=== PATIENT | male | born 1955 | race Hispanic/Latino ===

== ENCOUNTER 2019-09-20 07:49 | Outpatient (CLI) | payer OTHER ==
--- NOTE | 2019-09-20 08:17 | ULT ---
EXAM: Left lower extremity venous Doppler HISTORY: Left calf pain. FINDINGS: Grayscale, color-flow, Doppler evaluation, spectral analysis of the left lower extremity venous struc tures is performed with 2-D imaging. The left common femoral, superficial femoral, popliteal, posterior tibial, proximal greater saphenous and profunda femoral veins are imaged. There is normal luminal compressibility, flow, and augmentation in the visualized deep venous structu res of the left lower extremity. IMPRESSION: No evidence of a deep vein thrombosis in the visualized deep venous structures left lower extremity.
== END 2019-09-20 07:50 | disposition home or self-care (01) ==
LOC: BICULT 07:49
PROVIDERS: ATTEND Nurse Practitioner Family
DX: M79.662 Pain in left lower leg (principal)

== ENCOUNTER 2021-02-11 18:47 | Inpatient (IN) | payer SELFPAY ==
[~2021-02-11 18:47] MED LIST: Iopamidol-370 76% 500 ML 1 ML ONE
[2021-02-11] MEDS ORDERED: Dexamethasone 10 MG/ML VIAL ONE (19:29)
[2021-02-11] MEDS ORDERED: Acetaminophen 500 MG TAB ONE (19:29)
[2021-02-11 19:33] LABS: #Lymphocytes 1.6 thou/uL (1.20-3.40); #Monocytes 0.6 thou/uL (0.11-0.59); #Neutrophils 4.7 thou/uL (1.40-6.50); %Basophils 0.4 % (0.0-1.0); %Eosinophils 0.1 % (0.0-10.0); %Lymphocytes 22.9 % (21.0-51.0); %Monocytes 8.4 % (0.0-10.0); %Neutrophils 68.3 % (42.0-75.0); Hemoglobin 16.6 g/dL (14.0-18.0); Mean Corpuscular HGB CONC 33.7 g/dL (32.0-36.0); Mean Corpuscular Hemoglobin 32.2 pg (27.0-31.0); Mean Corpuscular Volume 95.3 fL (78.0-98.0); Mean Platelet Volume 8.6 fL (7.4-10.4); Platelet Count 155 thou/uL (130-400); RBC Distribution Width 12.7 % (11.5-14.5); Red Blood Cell (RBC) Count 5.16 mill/uL (4.70-6.10); White Blood Cell (WBC) Count 6.9 thou/uL (4.8-10.8)
[2021-02-11 19:50] LABS: ALT (SGPT) 72 U/L (8-55); AST (SGOT) 95 U/L (5-34); Albumin 3.5 g/dL (3.4-4.8); Alkaline Phosphatase 97 U/L (40-110); Anion Gap 13 mmol/L (10-20); BUN (Urea Nitrogen) 15 mg/dL (8.4-25.7); Bilirubin, Total 1.4 mg/dL (0.2-1.2); Calc. Creatinine Clearance 0 mL/min (70-130); Calcium 9.1 mg/dL (7.8-10.44); Carbon Dioxide 28 mmol/L (23-31); Chloride 97 mmol/L (98-107); Globulin 4.1 g/dL (2.4-3.5); Glucose 184 mg/dL (80-115); Potassium 4.4 mmol/L (3.5-5.1); Protein, Total 7.6 g/dL (5.8-8.1); Sodium 134 mmol/L (136-145)
[2021-02-11 21:59] LABS: SARS-CoV-2 NAA Rapid Test DETECTED (NotDetected)
[2021-02-11] MEDS ORDERED: Ondansetron ODT 4 MG TAB SL PRN (23:45)
[2021-02-11] MEDS ORDERED: Ondansetron PF 4 MG/2 ML Vial IVP PRN (23:45)
[2021-02-11] MEDS ORDERED: Acetaminophen 325 MG TAB PO PRN (23:45)
[2021-02-11 23:47] LABS: Bacteria/HPF None Seen HPF (None Seen); Bilirubin Negative (Negative); Blood, Urine Negative (Negative); Clarity Clear (Clear); Glucose, Urine (Dipstick) 70 mg/dL (Negative); Ketone, Urine Trace mg/dL (Negative); Leukocyte Negative Leu/uL (Negative); Nitrite Negative (Negative); Protein, Urine (Dipstick) 70 mg/dL (Neg-Trace); RBC/HPF 0-3 HPF (0-3); Specific Gravity, Urine 1.033 (1.002-1.036); Squamous Epithelial 0-3 HPF (0-3); Urobilinogen 3 mg/dL (Less than 2); WBC/HPF 0-3 HPF (0-3); pH, Urine 5.5 (5.0-9.0)
[2021-02-12] MEDS ORDERED: Dextrose 50% Abboject 50 ML SYRINGE SLOW IVP PRN (03:52)
[2021-02-12] MEDS ORDERED: Dextrose 5% in Water 1,000 ML IV PRN (03:52)
[2021-02-12] MEDS ORDERED: hydrALAZINE 20 MG/ML VIAL SLOW IVP PRN (04:11)
[2021-02-12] MEDS: HumaLOG 300 UNITS/3 ML VIAL SC PRN ×4 (05:49→20:34)
[2021-02-12 06:34] LABS: #Lymphocytes 0.7 thou/uL (1.20-3.40); #Monocytes 0.3 thou/uL (0.11-0.59); #Neutrophils 3.3 thou/uL (1.40-6.50); %Eosinophils 0.2 % (0.0-10.0); %Lymphocytes 16.2 % (21.0-51.0); %Monocytes 6.6 % (0.0-10.0); Hemoglobin 15.6 g/dL (14.0-18.0); Mean Corpuscular HGB CONC 33.1 g/dL (32.0-36.0); Mean Corpuscular Hemoglobin 31.8 pg (27.0-31.0); Mean Corpuscular Volume 96.1 fL (78.0-98.0); Mean Platelet Volume 8.8 fL (7.4-10.4); Platelet Count 144 thou/uL (130-400); RBC Distribution Width 12.3 % (11.5-14.5); White Blood Cell (WBC) Count 4.3 thou/uL (4.8-10.8)
[2021-02-12 06:57] LABS: ALT (SGPT) 63 U/L (8-55); AST (SGOT) 73 U/L (5-34); Albumin 3.1 g/dL (3.4-4.8); Alkaline Phosphatase 84 U/L (40-110); Anion Gap 13 mmol/L (10-20); BUN (Urea Nitrogen) 21 mg/dL (8.4-25.7); Bilirubin, Direct 0.6 mg/dL (0.1-0.3); Calc. Creatinine Clearance 99 mL/min (70-130); Calcium 8.7 mg/dL (7.8-10.44); Carbon Dioxide 25 mmol/L (23-31); Chloride 99 mmol/L (98-107); Glucose 319 mg/dL (80-115); Potassium 4.7 mmol/L (3.5-5.1); Protein, Total 6.8 g/dL (5.8-8.1); Sodium 132 mmol/L (136-145)
[2021-02-12] MEDS: Dexamethasone 4 mg/ml Vial SLOW IVP SCH (07:48)
[2021-02-12] MEDS: Zinc Sulfate 220 MG CAP PO SCH (07:48)
[2021-02-12] MEDS: Cholecalciferol 1,000 UNITS (25 MCG) TAB PO SCH (07:48)
[2021-02-12] MEDS: Ascorbic Acid 500 mg Chewable Tablet PO SCH (07:48)
[2021-02-12] MEDS: Famotidine 20 MG TAB PO SCH ×2 (07:48→20:34)
[2021-02-12] MEDS: Enoxaparin Sodium 40 MG/0.4 ML SYRINGE SC SCH ×2 (07:48→20:34)
[2021-02-12] MEDS ORDERED: REMDESIVIR 200 MG in Sodium Chloride 0.9% 250 ML 210 ML IV SCH (17:00)
[2021-02-13] MEDS: HumaLOG 300 UNITS/3 ML VIAL SC PRN ×3 (06:11→20:08)
[2021-02-13 06:33] LABS: #Monocytes 0.4 thou/uL (0.11-0.59); #Neutrophils 7.3 thou/uL (1.40-6.50); %Basophils 0.2 % (0.0-1.0); %Eosinophils 0.1 % (0.0-10.0); %Lymphocytes 11.5 % (21.0-51.0); %Monocytes 4.1 % (0.0-10.0); %Neutrophils 84.1 % (42.0-75.0); Hemoglobin 15.7 g/dL (14.0-18.0); Mean Corpuscular HGB CONC 33.6 g/dL (32.0-36.0); Mean Corpuscular Hemoglobin 31.9 pg (27.0-31.0); Mean Corpuscular Volume 94.8 fL (78.0-98.0); Mean Platelet Volume 8.7 fL (7.4-10.4); Platelet Count 167 thou/uL (130-400); RBC Distribution Width 12.4 % (11.5-14.5); Red Blood Cell (RBC) Count 4.91 mill/uL (4.70-6.10); White Blood Cell (WBC) Count 8.7 thou/uL (4.8-10.8)
[2021-02-13 06:57] LABS: ALT (SGPT) 52 U/L (8-55); AST (SGOT) 56 U/L (5-34); Albumin 3.1 g/dL (3.4-4.8); Alkaline Phosphatase 83 U/L (40-110); Anion Gap 12 mmol/L (10-20); BUN (Urea Nitrogen) 20 mg/dL (8.4-25.7); Bilirubin, Direct 0.5 mg/dL (0.1-0.3); Calc. Creatinine Clearance 116 mL/min (70-130); Calcium 8.8 mg/dL (7.8-10.44); Carbon Dioxide 25 mmol/L (23-31); Chloride 103 mmol/L (98-107); Glucose 188 mg/dL (80-115); Potassium 4.2 mmol/L (3.5-5.1); Protein, Total 6.8 g/dL (5.8-8.1); Sodium 136 mmol/L (136-145)
[2021-02-13] MEDS: Dexamethasone 4 mg/ml Vial SLOW IVP SCH (07:44)
[2021-02-13] MEDS: Enoxaparin Sodium 40 MG/0.4 ML SYRINGE SC SCH ×2 (07:44→19:24)
[2021-02-13] MEDS: Famotidine 20 MG TAB PO SCH ×2 (07:44→19:24)
[2021-02-13] MEDS: Zinc Sulfate 220 MG CAP PO SCH (07:44)
[2021-02-13] MEDS: Ascorbic Acid 500 mg Chewable Tablet PO SCH (07:44)
[2021-02-13] MEDS: Cholecalciferol 1,000 UNITS (25 MCG) TAB PO SCH (07:44)
[2021-02-13] MEDS: REMDESIVIR 100 MG in Sodium Chloride 0.9% 250 ML 230 ML IV SCH (16:46)
[2021-02-14] MEDS: HumaLOG 300 UNITS/3 ML VIAL SC PRN ×4 (04:53→22:03)
[2021-02-14 06:11] LABS: #Lymphocytes 1.1 thou/uL (1.20-3.40); #Monocytes 0.4 thou/uL (0.11-0.59); #Neutrophils 6.1 thou/uL (1.40-6.50); %Basophils 0.1 % (0.0-1.0); %Eosinophils 0.2 % (0.0-10.0); %Lymphocytes 13.9 % (21.0-51.0); %Monocytes 5.3 % (0.0-10.0); %Neutrophils 80.5 % (42.0-75.0); Hemoglobin 15.4 g/dL (14.0-18.0); Mean Corpuscular HGB CONC 32.7 g/dL (32.0-36.0); Mean Corpuscular Hemoglobin 31.4 pg (27.0-31.0); Mean Platelet Volume 8.7 fL (7.4-10.4); Platelet Count 186 thou/uL (130-400); RBC Distribution Width 12.5 % (11.5-14.5); Red Blood Cell (RBC) Count 4.92 mill/uL (4.70-6.10); White Blood Cell (WBC) Count 7.5 thou/uL (4.8-10.8)
[2021-02-14 06:38] LABS: ALT (SGPT) 44 U/L (8-55); AST (SGOT) 44 U/L (5-34); Alkaline Phosphatase 85 U/L (40-110); Anion Gap 11 mmol/L (10-20); BUN (Urea Nitrogen) 21 mg/dL (8.4-25.7); Bilirubin, Direct 0.5 mg/dL (0.1-0.3); Bilirubin, Total 1.1 mg/dL (0.2-1.2); Calc. Creatinine Clearance 116 mL/min (70-130); Calcium 8.6 mg/dL (7.8-10.44); Carbon Dioxide 24 mmol/L (23-31); Chloride 103 mmol/L (98-107); Glucose 225 mg/dL (80-115); Potassium 4.3 mmol/L (3.5-5.1); Protein, Total 6.7 g/dL (5.8-8.1); Sodium 134 mmol/L (136-145)
[2021-02-14] MEDS: Dexamethasone 4 mg/ml Vial SLOW IVP SCH (08:30)
[2021-02-14] MEDS: Zinc Sulfate 220 MG CAP PO SCH (08:31)
[2021-02-14] MEDS: Famotidine 20 MG TAB PO SCH ×2 (08:31→22:03)
[2021-02-14] MEDS: Cholecalciferol 1,000 UNITS (25 MCG) TAB PO SCH (08:31)
[2021-02-14] MEDS: Ascorbic Acid 500 mg Chewable Tablet PO SCH (08:31)
[2021-02-14] MEDS: Enoxaparin Sodium 40 MG/0.4 ML SYRINGE SC SCH ×2 (08:31→22:03)
[2021-02-14] MEDS: REMDESIVIR 100 MG in Sodium Chloride 0.9% 250 ML 230 ML IV SCH (17:32)
[2021-02-15] MEDS: HumaLOG 300 UNITS/3 ML VIAL SC PRN ×4 (05:12→21:03)
[2021-02-15] MEDS: Cholecalciferol 1,000 UNITS (25 MCG) TAB PO SCH (08:10)
[2021-02-15] MEDS: Ascorbic Acid 500 mg Chewable Tablet PO SCH (08:10)
[2021-02-15] MEDS: Famotidine 20 MG TAB PO SCH ×2 (08:10→21:03)
[2021-02-15] MEDS: Zinc Sulfate 220 MG CAP PO SCH (08:10)
[2021-02-15] MEDS: Dexamethasone 4 mg/ml Vial SLOW IVP SCH (08:10)
[2021-02-15] MEDS: Enoxaparin Sodium 40 MG/0.4 ML SYRINGE SC SCH ×2 (08:10→21:03)
[2021-02-15] MEDS: REMDESIVIR 100 MG in Sodium Chloride 0.9% 250 ML 230 ML IV SCH (17:25)
[2021-02-16] MEDS: Ondansetron PF 4 MG/2 ML Vial IVP PRN (00:39)
[2021-02-16] MEDS ORDERED: Nitroglycerin 0.4 MG TAB (25 Tab Bottle) SL PRN (01:47)
[2021-02-16 02:24] LABS: #Lymphocytes 0.9 thou/uL (1.20-3.40); #Monocytes 0.4 thou/uL (0.11-0.59); #Neutrophils 9.3 thou/uL (1.40-6.50); %Eosinophils 0.4 % (0.0-10.0); %Lymphocytes 8.3 % (21.0-51.0); %Monocytes 3.7 % (0.0-10.0); %Neutrophils 87.7 % (42.0-75.0); Hemoglobin 15.7 g/dL (14.0-18.0); Mean Corpuscular HGB CONC 34.5 g/dL (32.0-36.0); Mean Corpuscular Hemoglobin 32.9 pg (27.0-31.0); Mean Corpuscular Volume 95.4 fL (78.0-98.0); Mean Platelet Volume 8.5 fL (7.4-10.4); Platelet Count 192 thou/uL (130-400); RBC Distribution Width 12.5 % (11.5-14.5); Red Blood Cell (RBC) Count 4.76 mill/uL (4.70-6.10); White Blood Cell (WBC) Count 10.6 thou/uL (4.8-10.8)
[2021-02-16 02:40] LABS: Troponin I Less than 0.010 ng/mL (< 0.028)
[2021-02-16 02:55] LABS: ALT (SGPT) 42 U/L (8-55); AST (SGOT) 36 U/L (5-34); Albumin 2.7 g/dL (3.4-4.8); Alkaline Phosphatase 89 U/L (40-110); Anion Gap 13 mmol/L (10-20); BUN (Urea Nitrogen) 21 mg/dL (8.4-25.7); CRP (Inflammatory) 1.55 mg/dL (= or < 0.5); Calc. Creatinine Clearance 120 mL/min (70-130); Calcium 8.5 mg/dL (7.8-10.44); Carbon Dioxide 22 mmol/L (23-31); Chloride 106 mmol/L (98-107); Globulin 3.8 g/dL (2.4-3.5); Glucose 179 mg/dL (80-115); Potassium 4.4 mmol/L (3.5-5.1); Protein, Total 6.5 g/dL (5.8-8.1); Sodium 137 mmol/L (136-145)
[2021-02-16] MEDS: Ascorbic Acid 500 mg Chewable Tablet PO SCH (08:01)
[2021-02-16] MEDS: Cholecalciferol 1,000 UNITS (25 MCG) TAB PO SCH (08:01)
[2021-02-16] MEDS: Famotidine 20 MG TAB PO SCH ×2 (08:02→21:07)
[2021-02-16] MEDS: Enoxaparin Sodium 40 MG/0.4 ML SYRINGE SC SCH ×2 (08:02→21:07)
[2021-02-16] MEDS: Zinc Sulfate 220 MG CAP PO SCH (08:02)
[2021-02-16] MEDS: Dexamethasone 4 mg/ml Vial SLOW IVP SCH (08:02)
[2021-02-16] MEDS: Polyvinyl Alcohol 1.4%/Povidone 0.6% Opth Drops EA EYE SCH ×2 (09:05→21:07)
[2021-02-16] MEDS: HumaLOG 300 UNITS/3 ML VIAL SC PRN ×2 (11:47→17:10)
[2021-02-16] MEDS: REMDESIVIR 100 MG in Sodium Chloride 0.9% 250 ML 230 ML IV SCH (17:03)
[2021-02-17] MEDS: Ascorbic Acid 500 mg Chewable Tablet PO SCH (07:32)
[2021-02-17] MEDS: Dexamethasone 4 mg/ml Vial SLOW IVP SCH ×2 (07:32→21:34)
[2021-02-17] MEDS: Zinc Sulfate 220 MG CAP PO SCH (07:33)
[2021-02-17] MEDS: Enoxaparin Sodium 40 MG/0.4 ML SYRINGE SC SCH ×2 (07:33→21:34)
[2021-02-17] MEDS: Famotidine 20 MG TAB PO SCH (07:33)
[2021-02-17] MEDS: Cholecalciferol 1,000 UNITS (25 MCG) TAB PO SCH (07:33)
[2021-02-17] MEDS: Polyvinyl Alcohol 1.4%/Povidone 0.6% Opth Drops EA EYE SCH ×2 (07:34→22:16)
[2021-02-17] MEDS: Ondansetron PF 4 MG/2 ML Vial IVP PRN (09:08)
[2021-02-17 10:59] LABS: Actual Bicarbonate (HCO3a) 21.1 mEq/L (22-28); Base Excess (BEa) -1.8 mEq/L (-2.0 to +3.0); CO2 Tension 31.9 mmHg (35.0-45.0); Calcium, Ionized (arterial) 1.18 mmol/L (1.12-1.30); Carboxyhemoglobin (COHb) 0.7 gm% (0.0-3.0); Hemoglobin (Hb) 17.4 g/dL (14.0-18.0); O2 Tension (PaO2), arterial 40.1 mmHg (> 80.0); Potassium - ABG Lab 4.36 mmol/L (3.70-5.30); pH, Arterial 7.44 (7.35-7.45)
[2021-02-17 11:00] LABS: Puncture Site RRA
[2021-02-17 11:01] LABS: ALV-art Gradient 568.855 mmHg (0-20)
[2021-02-17] MEDS ORDERED: Amino Acids 4.25 %/Dextrose 5% 2,000 ML IV SCH (19:15)
[2021-02-17] MEDS ORDERED: Pharmacy to Dose BARICITINIB IVPB PRN (19:51)
[2021-02-17] MEDS: ALPRAZolam 0.25 MG TAB PO PRN (21:34)
[2021-02-17] MEDS: Benzonatate 100 MG CAP PO PRN (21:34)
[2021-02-17] MEDS: Colchicine 0.6 MG TAB PO SCH (21:34)
[2021-02-17] MEDS: HumaLOG 300 UNITS/3 ML VIAL SC PRN (21:39)
[2021-02-18 03:36] LABS: #Basophils 0.1 thou/uL (0.0-0.2); #Lymphocytes 0.5 thou/uL (1.20-3.40); #Monocytes 0.2 thou/uL (0.11-0.59); #Neutrophils 10.3 thou/uL (1.40-6.50); %Basophils 0.5 % (0.0-1.0); %Eosinophils 0.1 % (0.0-10.0); %Lymphocytes 4.4 % (21.0-51.0); %Monocytes 2.1 % (0.0-10.0); Hemoglobin 16.4 g/dL (14.0-18.0); Mean Corpuscular HGB CONC 34.1 g/dL (32.0-36.0); Mean Corpuscular Hemoglobin 32.7 pg (27.0-31.0); Mean Corpuscular Volume 95.8 fL (78.0-98.0); Mean Platelet Volume 8.7 fL (7.4-10.4); Platelet Count 209 thou/uL (130-400); RBC Distribution Width 13.2 % (11.5-14.5); Red Blood Cell (RBC) Count 5.03 mill/uL (4.70-6.10)
[2021-02-18 03:58] LABS: ALT (SGPT) 37 U/L (8-55); AST (SGOT) 32 U/L (5-34); Albumin 2.7 g/dL (3.4-4.8); Alkaline Phosphatase 105 U/L (40-110); Anion Gap 12 mmol/L (10-20); BUN (Urea Nitrogen) 23 mg/dL (8.4-25.7); Bilirubin, Total 1.3 mg/dL (0.2-1.2); CRP (Inflammatory) 5.41 mg/dL (= or < 0.5); Calc. Creatinine Clearance 112 mL/min (70-130); Calcium 8.5 mg/dL (7.8-10.44); Carbon Dioxide 23 mmol/L (23-31); Chloride 104 mmol/L (98-107); Globulin 3.8 g/dL (2.4-3.5); Glucose 327 mg/dL (80-115); Potassium 4.9 mmol/L (3.5-5.1); Protein, Total 6.5 g/dL (5.8-8.1); Sodium 134 mmol/L (136-145)
[2021-02-18] MEDS: HumaLOG 300 UNITS/3 ML VIAL SC PRN ×4 (05:33→20:49)
[2021-02-18] MEDS ORDERED: Amino Acids 4.25 %/Dextrose 5% 2,000 ML BAG IV SCH (09:00)
[2021-02-18] MEDS: Enoxaparin Sodium 40 MG/0.4 ML SYRINGE SC SCH ×2 (09:05→20:46)
[2021-02-18] MEDS: Zinc Sulfate 220 MG CAP PO SCH (09:05)
[2021-02-18] MEDS: Colchicine 0.6 MG TAB PO SCH ×2 (09:05→20:47)
[2021-02-18] MEDS: Ascorbic Acid 500 mg Chewable Tablet PO SCH (09:05)
[2021-02-18] MEDS: Polyvinyl Alcohol 1.4%/Povidone 0.6% Opth Drops EA EYE SCH ×2 (09:05→20:47)
[2021-02-18] MEDS: Dexamethasone 4 mg/ml Vial SLOW IVP SCH ×2 (09:05→20:47)
[2021-02-18] MEDS: Cholecalciferol 1,000 UNITS (25 MCG) TAB PO SCH (09:05)
[2021-02-18] MEDS: BARICITINIB 2 MG TAB PO SCH (09:44)
[2021-02-18] MEDS ORDERED: Lantus 1000 UNITS/10 ML VIAL SC SCH (11:15)
[2021-02-18] MEDS: ALPRAZolam 0.25 MG TAB PO PRN (20:47)
[2021-02-18] MEDS: Benzonatate 100 MG CAP PO PRN (20:47)
[2021-02-18] MEDS: Mirtazapine 15 MG TAB PO SCH (20:47)
[2021-02-18] MEDS: Lantus 1000 UNITS/10 ML VIAL SC SCH (20:49)
[2021-02-19 03:16] LABS: #Lymphocytes 0.6 thou/uL (1.20-3.40); #Monocytes 0.3 thou/uL (0.11-0.59); #Neutrophils 11.3 thou/uL (1.40-6.50); %Basophils 0.1 % (0.0-1.0); %Eosinophils 0.4 % (0.0-10.0); %Lymphocytes 5.2 % (21.0-51.0); %Monocytes 2.3 % (0.0-10.0); Hemoglobin 15.5 g/dL (14.0-18.0); Mean Corpuscular HGB CONC 33.7 g/dL (32.0-36.0); Mean Corpuscular Hemoglobin 32.2 pg (27.0-31.0); Mean Corpuscular Volume 95.4 fL (78.0-98.0); Mean Platelet Volume 8.8 fL (7.4-10.4); Platelet Count 210 thou/uL (130-400); RBC Distribution Width 12.9 % (11.5-14.5); Red Blood Cell (RBC) Count 4.83 mill/uL (4.70-6.10); White Blood Cell (WBC) Count 12.3 thou/uL (4.8-10.8)
[2021-02-19 03:33] LABS: Lactic Acid 2.1 mmol/L (0.5-2.2)
[2021-02-19 03:36] LABS: ALT (SGPT) 33 U/L (8-55); AST (SGOT) 30 U/L (5-34); Albumin 2.4 g/dL (3.4-4.8); Alkaline Phosphatase 98 U/L (40-110); Anion Gap 12 mmol/L (10-20); BUN (Urea Nitrogen) 25 mg/dL (8.4-25.7); CRP (Inflammatory) 2.52 mg/dL (= or < 0.5); Calc. Creatinine Clearance 109 mL/min (70-130); Calcium 8.3 mg/dL (7.8-10.44); Carbon Dioxide 21 mmol/L (23-31); Chloride 103 mmol/L (98-107); Globulin 3.6 g/dL (2.4-3.5); Glucose 302 mg/dL (80-115); Potassium 4.8 mmol/L (3.5-5.1); Sodium 131 mmol/L (136-145)
[2021-02-19] MEDS: HumaLOG 300 UNITS/3 ML VIAL SC PRN ×4 (05:57→20:07)
[2021-02-19] MEDS: Ascorbic Acid 500 mg Chewable Tablet PO SCH (08:05)
[2021-02-19] MEDS: Polyvinyl Alcohol 1.4%/Povidone 0.6% Opth Drops EA EYE SCH ×2 (08:05→20:06)
[2021-02-19] MEDS: Cholecalciferol 1,000 UNITS (25 MCG) TAB PO SCH (08:05)
[2021-02-19] MEDS: Colchicine 0.6 MG TAB PO SCH ×2 (08:05→20:06)
[2021-02-19] MEDS: Zinc Sulfate 220 MG CAP PO SCH (08:05)
[2021-02-19] MEDS: BARICITINIB 2 MG TAB PO SCH (08:06)
[2021-02-19] MEDS: Dexamethasone 4 mg/ml Vial SLOW IVP SCH ×2 (08:06→20:06)
[2021-02-19] MEDS: Enoxaparin Sodium 40 MG/0.4 ML SYRINGE SC SCH ×2 (08:06→20:06)
[2021-02-19] MEDS: Mirtazapine 15 MG TAB PO SCH (20:06)
[2021-02-19] MEDS: Lantus 1000 UNITS/10 ML VIAL SC SCH (20:07)
[2021-02-20 03:31] LABS: #Lymphocytes 0.4 thou/uL (1.20-3.40); #Monocytes 0.3 thou/uL (0.11-0.59); #Neutrophils 11.4 thou/uL (1.40-6.50); %Basophils 0.2 % (0.0-1.0); %Eosinophils 0.2 % (0.0-10.0); %Lymphocytes 2.9 % (21.0-51.0); %Monocytes 2.8 % (0.0-10.0); %Neutrophils 93.9 % (42.0-75.0); Hemoglobin 16.2 g/dL (14.0-18.0); Mean Corpuscular HGB CONC 34.4 g/dL (32.0-36.0); Mean Corpuscular Hemoglobin 32.9 pg (27.0-31.0); Mean Corpuscular Volume 95.6 fL (78.0-98.0); Mean Platelet Volume 8.9 fL (7.4-10.4); Platelet Count 188 thou/uL (130-400); RBC Distribution Width 13.1 % (11.5-14.5); Red Blood Cell (RBC) Count 4.91 mill/uL (4.70-6.10); White Blood Cell (WBC) Count 12.2 thou/uL (4.8-10.8)
[2021-02-20 03:56] LABS: ALT (SGPT) 38 U/L (8-55); AST (SGOT) 41 U/L (5-34); Albumin 2.4 g/dL (3.4-4.8); Alkaline Phosphatase 104 U/L (40-110); Anion Gap 13 mmol/L (10-20); BUN (Urea Nitrogen) 23 mg/dL (8.4-25.7); Bilirubin, Total 1.1 mg/dL (0.2-1.2); CRP (Inflammatory) 1.01 mg/dL (= or < 0.5); Calc. Creatinine Clearance 110 mL/min (70-130); Calcium 8.5 mg/dL (7.8-10.44); Carbon Dioxide 21 mmol/L (23-31); Chloride 105 mmol/L (98-107); Globulin 3.7 g/dL (2.4-3.5); Glucose 167 mg/dL (80-115); Potassium 4.9 mmol/L (3.5-5.1); Protein, Total 6.1 g/dL (5.8-8.1); Sodium 134 mmol/L (136-145)
[2021-02-20] MEDS: Polyvinyl Alcohol 1.4%/Povidone 0.6% Opth Drops EA EYE SCH ×2 (09:16→20:06)
[2021-02-20] MEDS: Enoxaparin Sodium 40 MG/0.4 ML SYRINGE SC SCH ×2 (09:16→20:06)
[2021-02-20] MEDS: Colchicine 0.6 MG TAB PO SCH ×2 (09:17→20:06)
[2021-02-20] MEDS: Dexamethasone 4 mg/ml Vial SLOW IVP SCH ×2 (09:17→20:06)
[2021-02-20] MEDS: BARICITINIB 2 MG TAB PO SCH (09:17)
[2021-02-20] MEDS: Ascorbic Acid 500 mg Chewable Tablet PO SCH (09:17)
[2021-02-20] MEDS: Cholecalciferol 1,000 UNITS (25 MCG) TAB PO SCH (09:17)
[2021-02-20] MEDS: Zinc Sulfate 220 MG CAP PO SCH (09:17)
[2021-02-20] MEDS ORDERED: Polyethylene Glycol 3350 17 GM Packet PO SCH (12:00)
[2021-02-20] MEDS: HumaLOG 300 UNITS/3 ML VIAL SC PRN ×2 (15:53→20:07)
[2021-02-20] MEDS: Senokot S 8.6-50 MG TAB PO SCH (20:06)
[2021-02-20] MEDS: Lantus 1000 UNITS/10 ML VIAL SC SCH (20:06)
[2021-02-20] MEDS: Mirtazapine 15 MG TAB PO SCH (20:06)
[2021-02-21 03:52] LABS: #Lymphocytes 0.5 thou/uL (1.20-3.40); #Monocytes 0.3 thou/uL (0.11-0.59); #Neutrophils 10.2 thou/uL (1.40-6.50); %Basophils 0.2 % (0.0-1.0); %Eosinophils 0.1 % (0.0-10.0); %Lymphocytes 4.5 % (21.0-51.0); %Monocytes 2.7 % (0.0-10.0); %Neutrophils 92.6 % (42.0-75.0); Hemoglobin 16.2 g/dL (14.0-18.0); Mean Corpuscular HGB CONC 34.5 g/dL (32.0-36.0); Mean Corpuscular Volume 95.6 fL (78.0-98.0); Platelet Count 157 thou/uL (130-400); RBC Distribution Width 13.2 % (11.5-14.5); White Blood Cell (WBC) Count 11.1 thou/uL (4.8-10.8)
[2021-02-21 04:07] LABS: ALT (SGPT) 46 U/L (8-55); AST (SGOT) 43 U/L (5-34); Albumin 2.5 g/dL (3.4-4.8); Alkaline Phosphatase 106 U/L (40-110); Anion Gap 9 mmol/L (10-20); BUN (Urea Nitrogen) 22 mg/dL (8.4-25.7); Bilirubin, Total 1.4 mg/dL (0.2-1.2); CRP (Inflammatory) 0.59 mg/dL (= or < 0.5); Calc. Creatinine Clearance 118 mL/min (70-130); Calcium 8.3 mg/dL (7.8-10.44); Carbon Dioxide 27 mmol/L (23-31); Chloride 103 mmol/L (98-107); Globulin 3.5 g/dL (2.4-3.5); Glucose 164 mg/dL (80-115); Potassium 4.5 mmol/L (3.5-5.1); Sodium 134 mmol/L (136-145)
[2021-02-21] MEDS: Colchicine 0.6 MG TAB PO SCH ×2 (09:24→20:13)
[2021-02-21] MEDS: Senokot S 8.6-50 MG TAB PO SCH ×2 (09:24→20:13)
[2021-02-21] MEDS: Cholecalciferol 1,000 UNITS (25 MCG) TAB PO SCH (09:24)
[2021-02-21] MEDS: BARICITINIB 2 MG TAB PO SCH (09:24)
[2021-02-21] MEDS: Polyvinyl Alcohol 1.4%/Povidone 0.6% Opth Drops EA EYE SCH ×2 (09:24→20:14)
[2021-02-21] MEDS: Dexamethasone 4 mg/ml Vial SLOW IVP SCH ×2 (09:24→20:13)
[2021-02-21] MEDS: Zinc Sulfate 220 MG CAP PO SCH (09:24)
[2021-02-21] MEDS: Enoxaparin Sodium 40 MG/0.4 ML SYRINGE SC SCH ×2 (09:24→20:15)
[2021-02-21] MEDS: Ascorbic Acid 500 mg Chewable Tablet PO SCH (09:24)
[2021-02-21] MEDS: Lantus 1000 UNITS/10 ML VIAL SC SCH (20:14)
[2021-02-21] MEDS: Mirtazapine 15 MG TAB PO SCH (20:14)
[2021-02-21] MEDS: HumaLOG 300 UNITS/3 ML VIAL SC PRN (20:15)
[2021-02-22] MEDS: HumaLOG 300 UNITS/3 ML VIAL SC PRN (05:26)
[2021-02-22] MEDS: Enoxaparin Sodium 40 MG/0.4 ML SYRINGE SC SCH ×2 (09:17→21:49)
[2021-02-22] MEDS: Senokot S 8.6-50 MG TAB PO SCH ×2 (09:17→21:49)
[2021-02-22] MEDS: Dexamethasone 4 mg/ml Vial SLOW IVP SCH ×2 (09:17→21:48)
[2021-02-22] MEDS: Colchicine 0.6 MG TAB PO SCH ×2 (09:17→21:48)
[2021-02-22] MEDS: BARICITINIB 2 MG TAB PO SCH (09:17)
[2021-02-22] MEDS: Cholecalciferol 1,000 UNITS (25 MCG) TAB PO SCH (09:17)
[2021-02-22] MEDS: Ascorbic Acid 500 mg Chewable Tablet PO SCH (09:17)
[2021-02-22] MEDS: Polyvinyl Alcohol 1.4%/Povidone 0.6% Opth Drops EA EYE SCH ×2 (09:18→21:48)
[2021-02-22] MEDS: Zinc Sulfate 220 MG CAP PO SCH (09:18)
[2021-02-22] MEDS: Mirtazapine 15 MG TAB PO SCH (21:48)
[2021-02-22] MEDS: ALPRAZolam 0.25 MG TAB PO PRN (21:48)
[2021-02-22] MEDS: Lantus 1000 UNITS/10 ML VIAL SC SCH (21:52)
[2021-02-23] MEDS: HumaLOG 300 UNITS/3 ML VIAL SC PRN ×3 (06:48→16:56)
[2021-02-23] MEDS: BARICITINIB 2 MG TAB PO SCH (08:02)
[2021-02-23] MEDS: Enoxaparin Sodium 40 MG/0.4 ML SYRINGE SC SCH ×2 (08:02→21:03)
[2021-02-23] MEDS: Polyvinyl Alcohol 1.4%/Povidone 0.6% Opth Drops EA EYE SCH ×2 (08:08→21:03)
[2021-02-23] MEDS: Ascorbic Acid 500 mg Chewable Tablet PO SCH (08:08)
[2021-02-23] MEDS: Dexamethasone 4 mg/ml Vial SLOW IVP SCH ×2 (08:09→21:03)
[2021-02-23] MEDS: Senokot S 8.6-50 MG TAB PO SCH ×2 (08:09→21:02)
[2021-02-23] MEDS: Zinc Sulfate 220 MG CAP PO SCH (08:09)
[2021-02-23] MEDS: Colchicine 0.6 MG TAB PO SCH ×2 (08:09→21:02)
[2021-02-23] MEDS: Cholecalciferol 1,000 UNITS (25 MCG) TAB PO SCH (08:09)
[2021-02-23] MEDS: Mirtazapine 15 MG TAB PO SCH (21:02)
[2021-02-23] MEDS: Lantus 1000 UNITS/10 ML VIAL SC SCH (21:04)
[2021-02-24 04:04] LABS: #Lymphocytes 0.7 thou/uL (1.20-3.40); #Monocytes 0.3 thou/uL (0.11-0.59); #Neutrophils 14.6 thou/uL (1.40-6.50); %Eosinophils 0.2 % (0.0-10.0); %Lymphocytes 4.4 % (21.0-51.0); %Monocytes 2.2 % (0.0-10.0); %Neutrophils 93.3 % (42.0-75.0); Hemoglobin 17.1 g/dL (14.0-18.0); Mean Corpuscular HGB CONC 32.7 g/dL (32.0-36.0); Mean Corpuscular Hemoglobin 31.5 pg (27.0-31.0); Mean Corpuscular Volume 96.4 fL (78.0-98.0); Mean Platelet Volume 9.8 fL (7.4-10.4); Platelet Count 137 thou/uL (130-400); RBC Distribution Width 13.3 % (11.5-14.5); Red Blood Cell (RBC) Count 5.41 mill/uL (4.70-6.10); White Blood Cell (WBC) Count 15.7 thou/uL (4.8-10.8)
[2021-02-24 04:31] LABS: ALT (SGPT) 73 U/L (8-55); AST (SGOT) 46 U/L (5-34); Albumin 2.5 g/dL (3.4-4.8); Alkaline Phosphatase 117 U/L (40-110); Anion Gap 12 mmol/L (10-20); BUN (Urea Nitrogen) 24 mg/dL (8.4-25.7); Bilirubin, Direct 0.7 mg/dL (0.1-0.3); Bilirubin, Total 1.6 mg/dL (0.2-1.2); Calc. Creatinine Clearance 113 mL/min (70-130); Calcium 8.6 mg/dL (7.8-10.44); Carbon Dioxide 26 mmol/L (23-31); Chloride 104 mmol/L (98-107); Glucose 164 mg/dL (80-115); Potassium 4.5 mmol/L (3.5-5.1); Sodium 137 mmol/L (136-145)
[2021-02-24] MEDS: Benzonatate 100 MG CAP PO PRN (06:05)
[2021-02-24] MEDS: HumaLOG 300 UNITS/3 ML VIAL SC PRN ×3 (06:05→20:51)
[2021-02-24] MEDS: Cholecalciferol 1,000 UNITS (25 MCG) TAB PO SCH (10:10)
[2021-02-24] MEDS: Ascorbic Acid 500 mg Chewable Tablet PO SCH (10:10)
[2021-02-24] MEDS: Zinc Sulfate 220 MG CAP PO SCH (10:11)
[2021-02-24] MEDS: Enoxaparin Sodium 40 MG/0.4 ML SYRINGE SC SCH ×2 (10:11→20:36)
[2021-02-24] MEDS: Dexamethasone 4 mg/ml Vial SLOW IVP SCH ×2 (10:11→20:37)
[2021-02-24] MEDS: BARICITINIB 2 MG TAB PO SCH (10:11)
[2021-02-24] MEDS: Colchicine 0.6 MG TAB PO SCH ×2 (10:11→20:36)
[2021-02-24] MEDS: Senokot S 8.6-50 MG TAB PO SCH ×2 (10:11→20:36)
[2021-02-24] MEDS: Polyvinyl Alcohol 1.4%/Povidone 0.6% Opth Drops EA EYE SCH ×2 (10:12→20:37)
[2021-02-24] MEDS: Mirtazapine 15 MG TAB PO SCH (20:37)
[2021-02-24] MEDS: Lantus 1000 UNITS/10 ML VIAL SC SCH (20:49)
[2021-02-25] MEDS: HumaLOG 300 UNITS/3 ML VIAL SC PRN ×2 (06:03→17:20)
[2021-02-25] MEDS: Dexamethasone 4 mg/ml Vial SLOW IVP SCH ×2 (09:44→21:30)
[2021-02-25] MEDS: Senokot S 8.6-50 MG TAB PO SCH ×2 (09:44→21:30)
[2021-02-25] MEDS: Cholecalciferol 1,000 UNITS (25 MCG) TAB PO SCH (09:44)
[2021-02-25] MEDS: Zinc Sulfate 220 MG CAP PO SCH (09:44)
[2021-02-25] MEDS: BARICITINIB 2 MG TAB PO SCH (09:44)
[2021-02-25] MEDS: Ascorbic Acid 500 mg Chewable Tablet PO SCH (09:44)
[2021-02-25] MEDS: Enoxaparin Sodium 40 MG/0.4 ML SYRINGE SC SCH ×2 (09:44→21:30)
[2021-02-25] MEDS: Polyvinyl Alcohol 1.4%/Povidone 0.6% Opth Drops EA EYE SCH ×2 (09:44→21:31)
[2021-02-25] MEDS: Colchicine 0.6 MG TAB PO SCH ×2 (09:44→21:30)
[2021-02-25] MEDS ORDERED: Albuterol Sulfate 2.5 mg/3 ml Neb EZPAP PRN (11:52)
[2021-02-25] MEDS: Acetaminophen 325 MG TAB PO PRN (11:54)
[2021-02-25] MEDS: Mirtazapine 15 MG TAB PO SCH (21:30)
[2021-02-25] MEDS: Metoprolol Tartrate 25 MG TAB PO SCH (21:30)
[2021-02-25] MEDS: Lantus 1000 UNITS/10 ML VIAL SC SCH (21:31)
[2021-02-26] MEDS: Benzonatate 100 MG CAP PO PRN ×3 (05:12→21:18)
[2021-02-26] MEDS: Senokot S 8.6-50 MG TAB PO SCH ×2 (09:33→21:17)
[2021-02-26] MEDS: Ascorbic Acid 500 mg Chewable Tablet PO SCH (09:34)
[2021-02-26] MEDS: Colchicine 0.6 MG TAB PO SCH ×2 (09:34→21:16)
[2021-02-26] MEDS: Metoprolol Tartrate 25 MG TAB PO SCH ×3 (09:34→22:03)
[2021-02-26] MEDS: Zinc Sulfate 220 MG CAP PO SCH (09:35)
[2021-02-26] MEDS: Cholecalciferol 1,000 UNITS (25 MCG) TAB PO SCH (09:35)
[2021-02-26] MEDS: Dexamethasone 4 mg/ml Vial SLOW IVP SCH ×2 (09:35→21:16)
[2021-02-26] MEDS: Enoxaparin Sodium 40 MG/0.4 ML SYRINGE SC SCH ×2 (09:36→21:16)
[2021-02-26] MEDS: Polyvinyl Alcohol 1.4%/Povidone 0.6% Opth Drops EA EYE SCH ×2 (09:37→21:16)
[2021-02-26] MEDS: BARICITINIB 2 MG TAB PO SCH (09:41)
[2021-02-26] MEDS: Acetaminophen 325 MG TAB PO PRN (10:19)
[2021-02-26] MEDS: HumaLOG 300 UNITS/3 ML VIAL SC PRN (16:43)
[2021-02-26] MEDS: Lantus 1000 UNITS/10 ML VIAL SC SCH (21:14)
[2021-02-26] MEDS: Mirtazapine 15 MG TAB PO SCH (21:16)
[2021-02-27 04:13] LABS: #Lymphocytes 0.7 thou/uL (1.20-3.40); #Monocytes 0.5 thou/uL (0.11-0.59); #Neutrophils 14.7 thou/uL (1.40-6.50); %Eosinophils 0.1 % (0.0-10.0); %Lymphocytes 4.1 % (21.0-51.0); %Monocytes 3.2 % (0.0-10.0); %Neutrophils 92.6 % (42.0-75.0); Hemoglobin 17.2 g/dL (14.0-18.0); Mean Corpuscular Hemoglobin 32.2 pg (27.0-31.0); Mean Corpuscular Volume 97.5 fL (78.0-98.0); Mean Platelet Volume 9.8 fL (7.4-10.4); Platelet Count 142 thou/uL (130-400); RBC Distribution Width 13.3 % (11.5-14.5); Red Blood Cell (RBC) Count 5.36 mill/uL (4.70-6.10); White Blood Cell (WBC) Count 15.8 thou/uL (4.8-10.8)
[2021-02-27 04:36] LABS: ALT (SGPT) 71 U/L (8-55); AST (SGOT) 48 U/L (5-34); Albumin 2.7 g/dL (3.4-4.8); Alkaline Phosphatase 147 U/L (40-110); Anion Gap 14 mmol/L (10-20); BUN (Urea Nitrogen) 27 mg/dL (8.4-25.7); Bilirubin, Direct 0.7 mg/dL (0.1-0.3); Bilirubin, Total 1.6 mg/dL (0.2-1.2); Calc. Creatinine Clearance 108 mL/min (70-130); Calcium 8.5 mg/dL (7.8-10.44); Carbon Dioxide 21 mmol/L (23-31); Chloride 105 mmol/L (98-107); Glucose 165 mg/dL (80-115); Potassium 4.4 mmol/L (3.5-5.1); Protein, Total 6.2 g/dL (5.8-8.1); Sodium 136 mmol/L (136-145)
[2021-02-27] MEDS: HumaLOG 300 UNITS/3 ML VIAL SC PRN ×2 (05:14→17:35)
[2021-02-27] MEDS: Ascorbic Acid 500 mg Chewable Tablet PO SCH (09:16)
[2021-02-27] MEDS: Metoprolol Tartrate 25 MG TAB PO SCH ×2 (09:17→20:54)
[2021-02-27] MEDS: Zinc Sulfate 220 MG CAP PO SCH (09:17)
[2021-02-27] MEDS: Cholecalciferol 1,000 UNITS (25 MCG) TAB PO SCH (09:17)
[2021-02-27] MEDS: BARICITINIB 2 MG TAB PO SCH (09:17)
[2021-02-27] MEDS: Benzonatate 100 MG CAP PO PRN ×2 (09:17→20:47)
[2021-02-27] MEDS: Dexamethasone 4 mg/ml Vial SLOW IVP SCH ×2 (09:26→20:48)
[2021-02-27] MEDS: Enoxaparin Sodium 40 MG/0.4 ML SYRINGE SC SCH ×2 (09:26→20:47)
[2021-02-27] MEDS: Polyvinyl Alcohol 1.4%/Povidone 0.6% Opth Drops EA EYE SCH ×2 (09:27→20:47)
[2021-02-27] MEDS: Senokot S 8.6-50 MG TAB PO SCH ×2 (09:29→20:54)
[2021-02-27] MEDS: Colchicine 0.6 MG TAB PO SCH ×2 (09:29→20:47)
[2021-02-27] MEDS: Lantus 1000 UNITS/10 ML VIAL SC SCH (20:46)
[2021-02-27] MEDS: Mirtazapine 15 MG TAB PO SCH (20:47)
[2021-02-27] MEDS: Loperamide HCl 2 MG CAP PO PRN (20:47)
[2021-02-28] MEDS: HumaLOG 300 UNITS/3 ML VIAL SC PRN ×2 (05:55→16:58)
[2021-02-28] MEDS: Colchicine 0.6 MG TAB PO SCH ×2 (08:56→20:32)
[2021-02-28] MEDS: Senokot S 8.6-50 MG TAB PO SCH ×2 (08:56→20:36)
[2021-02-28] MEDS: Ascorbic Acid 500 mg Chewable Tablet PO SCH (08:56)
[2021-02-28] MEDS: Metoprolol Tartrate 25 MG TAB PO SCH ×2 (08:56→20:42)
[2021-02-28] MEDS: Cholecalciferol 1,000 UNITS (25 MCG) TAB PO SCH (08:57)
[2021-02-28] MEDS: Polyvinyl Alcohol 1.4%/Povidone 0.6% Opth Drops EA EYE SCH ×2 (08:57→20:33)
[2021-02-28] MEDS: Enoxaparin Sodium 40 MG/0.4 ML SYRINGE SC SCH ×2 (08:57→20:33)
[2021-02-28] MEDS: Dexamethasone 4 mg/ml Vial SLOW IVP SCH ×2 (08:57→20:31)
[2021-02-28] MEDS: Zinc Sulfate 220 MG CAP PO SCH (08:57)
[2021-02-28] MEDS: BARICITINIB 2 MG TAB PO SCH (08:59)
[2021-02-28] MEDS: Benzonatate 100 MG CAP PO PRN (20:32)
[2021-02-28] MEDS: Mirtazapine 15 MG TAB PO SCH (20:32)
[2021-02-28] MEDS: Lantus 1000 UNITS/10 ML VIAL SC SCH (20:34)
[2021-03-01] MEDS: BARICITINIB 2 MG TAB PO SCH (08:50)
[2021-03-01] MEDS: Dexamethasone 4 mg/ml Vial SLOW IVP SCH ×2 (08:50→22:28)
[2021-03-01] MEDS: Ascorbic Acid 500 mg Chewable Tablet PO SCH (08:51)
[2021-03-01] MEDS: Colchicine 0.6 MG TAB PO SCH ×2 (08:51→22:28)
[2021-03-01] MEDS: Zinc Sulfate 220 MG CAP PO SCH (08:51)
[2021-03-01] MEDS: Cholecalciferol 1,000 UNITS (25 MCG) TAB PO SCH (08:52)
[2021-03-01] MEDS: Metoprolol Tartrate 25 MG TAB PO SCH ×2 (08:52→22:28)
[2021-03-01] MEDS: Polyvinyl Alcohol 1.4%/Povidone 0.6% Opth Drops EA EYE SCH ×2 (08:52→22:31)
[2021-03-01] MEDS: Enoxaparin Sodium 40 MG/0.4 ML SYRINGE SC SCH ×2 (08:52→22:29)
[2021-03-01] MEDS: Senokot S 8.6-50 MG TAB PO SCH ×2 (08:53→22:30)
[2021-03-01] MEDS: Loperamide HCl 2 MG CAP PO PRN (13:33)
[2021-03-01] MEDS: Mirtazapine 15 MG TAB PO SCH (22:28)
[2021-03-01] MEDS: Lantus 1000 UNITS/10 ML VIAL SC SCH (22:29)
[2021-03-01] MEDS: HumaLOG 300 UNITS/3 ML VIAL SC PRN (23:37)
[2021-03-02 04:33] LABS: ALT (SGPT) 70 U/L (8-55); AST (SGOT) 37 U/L (5-34); Albumin 2.5 g/dL (3.4-4.8); Alkaline Phosphatase 134 U/L (40-110); Anion Gap 9 mmol/L (10-20); BUN (Urea Nitrogen) 26 mg/dL (8.4-25.7); Bilirubin, Direct 0.5 mg/dL (0.1-0.3); Bilirubin, Total 1.1 mg/dL (0.2-1.2); Calc. Creatinine Clearance 126 mL/min (70-130); Calcium 8.1 mg/dL (7.8-10.44); Carbon Dioxide 25 mmol/L (23-31); Chloride 105 mmol/L (98-107); Glucose 113 mg/dL (80-115); Magnesium 2.2 mg/dL (1.6-2.6); Potassium 4.1 mmol/L (3.5-5.1); Protein, Total 5.6 g/dL (5.8-8.1); Sodium 135 mmol/L (136-145)
[2021-03-02 04:34] LABS: Phosphorus 2.6 mg/dL (2.3-4.7)
[2021-03-02 05:29] LABS: #Eosinphils 0.1 thou/uL (0.0-0.7); #Lymphocytes 0.6 thou/uL (1.20-3.40); #Monocytes 0.4 thou/uL (0.11-0.59); #Neutrophils 12.2 thou/uL (1.40-6.50); %Basophils 0.1 % (0.0-1.0); %Eosinophils 0.5 % (0.0-10.0); %Lymphocytes 4.3 % (21.0-51.0); %Neutrophils 92.1 % (42.0-75.0); Hemoglobin 16.4 g/dL (14.0-18.0); Mean Corpuscular HGB CONC 33.4 g/dL (32.0-36.0); Mean Corpuscular Hemoglobin 32.8 pg (27.0-31.0); Mean Platelet Volume 10.9 fL (7.4-10.4); Platelet Count 110 thou/uL (130-400); Platelet Morphology Comment Appears Decreased; RBC Distribution Width 13.4 % (11.5-14.5); White Blood Cell (WBC) Count 13.3 thou/uL (4.8-10.8)
[2021-03-02] MEDS: BARICITINIB 2 MG TAB PO SCH (09:52)
[2021-03-02] MEDS: Enoxaparin Sodium 40 MG/0.4 ML SYRINGE SC SCH ×2 (09:52→20:43)
[2021-03-02] MEDS: Zinc Sulfate 220 MG CAP PO SCH (09:57)
[2021-03-02] MEDS: Cholecalciferol 1,000 UNITS (25 MCG) TAB PO SCH (09:57)
[2021-03-02] MEDS: Folic Acid 1 MG TAB PO SCH (09:57)
[2021-03-02] MEDS: Ascorbic Acid 500 mg Chewable Tablet PO SCH (09:57)
[2021-03-02] MEDS: Multivit, Therapeutic 1 TAB PO SCH (09:57)
[2021-03-02] MEDS: Metoprolol Tartrate 25 MG TAB PO SCH ×2 (09:57→21:07)
[2021-03-02] MEDS: Cyanocobalamin (Vitamin B-12) 1,000 MCG TAB PO SCH (09:57)
[2021-03-02] MEDS: Colchicine 0.6 MG TAB PO SCH ×2 (09:57→20:44)
[2021-03-02] MEDS: Dexamethasone 4 mg/ml Vial SLOW IVP SCH ×2 (09:58→20:44)
[2021-03-02] MEDS: Senokot S 8.6-50 MG TAB PO SCH ×2 (09:59→20:24)
[2021-03-02] MEDS: Polyvinyl Alcohol 1.4%/Povidone 0.6% Opth Drops EA EYE SCH ×2 (09:59→20:43)
[2021-03-02] MEDS: Loperamide HCl 2 MG CAP PO PRN (13:13)
[2021-03-02] MEDS: Mirtazapine 15 MG TAB PO SCH (20:43)
[2021-03-02] MEDS: Lantus 1000 UNITS/10 ML VIAL SC SCH (20:44)
[2021-03-02] MEDS: Benzonatate 100 MG CAP PO PRN (20:44)
[2021-03-02] MEDS: HumaLOG 300 UNITS/3 ML VIAL SC PRN (21:23)
[2021-03-03 04:11] LABS: #Lymphocytes 0.7 thou/uL (1.20-3.40); #Monocytes 0.3 thou/uL (0.11-0.59); #Neutrophils 9.9 thou/uL (1.40-6.50); %Eosinophils 0.4 % (0.0-10.0); %Monocytes 2.3 % (0.0-10.0); %Neutrophils 91.2 % (42.0-75.0); Hemoglobin 15.6 g/dL (14.0-18.0); Mean Corpuscular HGB CONC 32.8 g/dL (32.0-36.0); Mean Corpuscular Volume 97.7 fL (78.0-98.0); Mean Platelet Volume 10.2 fL (7.4-10.4); Platelet Count 115 thou/uL (130-400); RBC Distribution Width 13.4 % (11.5-14.5); Red Blood Cell (RBC) Count 4.88 mill/uL (4.70-6.10); White Blood Cell (WBC) Count 10.9 thou/uL (4.8-10.8)
[2021-03-03 04:28] LABS: Anion Gap 10 mmol/L (10-20); BUN (Urea Nitrogen) 23 mg/dL (8.4-25.7); Calc. Creatinine Clearance 120 mL/min (70-130); Calcium 8.1 mg/dL (7.8-10.44); Carbon Dioxide 25 mmol/L (23-31); Chloride 105 mmol/L (98-107); Glucose 166 mg/dL (80-115); Potassium 4.3 mmol/L (3.5-5.1); Sodium 136 mmol/L (136-145)
[2021-03-03] MEDS: Folic Acid 1 MG TAB PO SCH (09:34)
[2021-03-03] MEDS: Polyvinyl Alcohol 1.4%/Povidone 0.6% Opth Drops EA EYE SCH ×2 (09:34→21:52)
[2021-03-03] MEDS: BARICITINIB 2 MG TAB PO SCH (09:34)
[2021-03-03] MEDS: Zinc Sulfate 220 MG CAP PO SCH (09:35)
[2021-03-03] MEDS: Multivit, Therapeutic 1 TAB PO SCH (09:35)
[2021-03-03] MEDS: Dexamethasone 4 mg/ml Vial SLOW IVP SCH ×2 (09:35→21:52)
[2021-03-03] MEDS: Metoprolol Tartrate 25 MG TAB PO SCH ×2 (09:35→21:53)
[2021-03-03] MEDS: Cyanocobalamin (Vitamin B-12) 1,000 MCG TAB PO SCH (09:35)
[2021-03-03] MEDS: Cholecalciferol 1,000 UNITS (25 MCG) TAB PO SCH (09:35)
[2021-03-03] MEDS: Loperamide HCl 2 MG CAP PO PRN (09:35)
[2021-03-03] MEDS: Enoxaparin Sodium 40 MG/0.4 ML SYRINGE SC SCH ×2 (09:35→21:52)
[2021-03-03] MEDS: Colchicine 0.6 MG TAB PO SCH ×2 (09:35→21:52)
[2021-03-03] MEDS: Senokot S 8.6-50 MG TAB PO SCH ×2 (10:22→21:52)
[2021-03-03] MEDS: Ascorbic Acid 500 mg Chewable Tablet PO SCH (10:23)
[2021-03-03] MEDS: Mirtazapine 15 MG TAB PO SCH (21:52)
[2021-03-03] MEDS: HumaLOG 300 UNITS/3 ML VIAL SC PRN (21:53)
[2021-03-03] MEDS: Lantus 1000 UNITS/10 ML VIAL SC SCH (21:53)
[2021-03-04] MEDS: Metoprolol Tartrate 25 MG TAB PO SCH ×3 (10:20→21:38)
[2021-03-04] MEDS: Multivit, Therapeutic 1 TAB PO SCH (10:28)
[2021-03-04] MEDS: Folic Acid 1 MG TAB PO SCH (10:29)
[2021-03-04] MEDS: Dexamethasone 4 mg/ml Vial SLOW IVP SCH ×2 (10:29→21:38)
[2021-03-04] MEDS: Polyvinyl Alcohol 1.4%/Povidone 0.6% Opth Drops EA EYE SCH ×2 (10:29→21:38)
[2021-03-04] MEDS: Ascorbic Acid 500 mg Chewable Tablet PO SCH (10:29)
[2021-03-04] MEDS: Loperamide HCl 2 MG CAP PO PRN (10:29)
[2021-03-04] MEDS: Zinc Sulfate 220 MG CAP PO SCH (10:29)
[2021-03-04] MEDS: Cyanocobalamin (Vitamin B-12) 1,000 MCG TAB PO SCH (10:29)
[2021-03-04] MEDS: Benzonatate 100 MG CAP PO PRN (10:29)
[2021-03-04] MEDS: Cholecalciferol 1,000 UNITS (25 MCG) TAB PO SCH (10:29)
[2021-03-04] MEDS: Colchicine 0.6 MG TAB PO SCH (10:29)
[2021-03-04] MEDS: Enoxaparin Sodium 40 MG/0.4 ML SYRINGE SC SCH ×2 (10:30→21:37)
[2021-03-04] MEDS: Senokot S 8.6-50 MG TAB PO SCH ×2 (10:30→21:37)
[2021-03-04] MEDS: Mirtazapine 15 MG TAB PO SCH (21:37)
[2021-03-04] MEDS: Lantus 1000 UNITS/10 ML VIAL SC SCH (21:37)
[2021-03-05 06:22] LABS: #Eosinphils 0.1 thou/uL (0.0-0.7); #Lymphocytes 0.6 thou/uL (1.20-3.40); #Monocytes 0.4 thou/uL (0.11-0.59); #Neutrophils 12.2 thou/uL (1.40-6.50); %Eosinophils 0.8 % (0.0-10.0); %Lymphocytes 4.1 % (21.0-51.0); %Monocytes 2.9 % (0.0-10.0); %Neutrophils 92.2 % (42.0-75.0); Hemoglobin 15.8 g/dL (14.0-18.0); Mean Corpuscular HGB CONC 33.9 g/dL (32.0-36.0); Mean Corpuscular Hemoglobin 33.2 pg (27.0-31.0); Platelet Count 107 thou/uL (130-400); RBC Distribution Width 13.4 % (11.5-14.5); Red Blood Cell (RBC) Count 4.76 mill/uL (4.70-6.10); White Blood Cell (WBC) Count 13.2 thou/uL (4.8-10.8)
[2021-03-05 06:44] LABS: Anion Gap 7 mmol/L (10-20); BUN (Urea Nitrogen) 23 mg/dL (8.4-25.7); Calc. Creatinine Clearance 114 mL/min (70-130); Calcium 8.4 mg/dL (7.8-10.44); Carbon Dioxide 29 mmol/L (23-31); Chloride 105 mmol/L (98-107); Glucose 119 mg/dL (80-115); Potassium 4.2 mmol/L (3.5-5.1); Sodium 137 mmol/L (136-145)
[2021-03-05] MEDS: Enoxaparin Sodium 40 MG/0.4 ML SYRINGE SC SCH ×2 (08:24→21:23)
[2021-03-05] MEDS: Polyvinyl Alcohol 1.4%/Povidone 0.6% Opth Drops EA EYE SCH ×2 (08:24→21:25)
[2021-03-05] MEDS: Cholecalciferol 1,000 UNITS (25 MCG) TAB PO SCH (08:25)
[2021-03-05] MEDS: Cyanocobalamin (Vitamin B-12) 1,000 MCG TAB PO SCH (08:25)
[2021-03-05] MEDS: Metoprolol Tartrate 25 MG TAB PO SCH (08:25)
[2021-03-05] MEDS: Multivit, Therapeutic 1 TAB PO SCH (08:25)
[2021-03-05] MEDS: Dexamethasone 4 mg/ml Vial SLOW IVP SCH (08:25)
[2021-03-05] MEDS: Senokot S 8.6-50 MG TAB PO SCH ×2 (08:25→21:26)
[2021-03-05] MEDS: Ascorbic Acid 500 mg Chewable Tablet PO SCH (08:25)
[2021-03-05] MEDS: Zinc Sulfate 220 MG CAP PO SCH (08:25)
[2021-03-05] MEDS: Folic Acid 1 MG TAB PO SCH (08:25)
[2021-03-05] MEDS ORDERED: Sodium Chloride 0.9% 500 ML IV SCH (11:45)
[2021-03-05] MEDS: HumaLOG 300 UNITS/3 ML VIAL SC PRN (12:43)
[2021-03-05] MEDS: Lantus 1000 UNITS/10 ML VIAL SC SCH (21:23)
[2021-03-05] MEDS: Mirtazapine 15 MG TAB PO SCH (21:24)
[2021-03-06] MEDS: Benzonatate 100 MG CAP PO PRN (01:11)
[2021-03-06 04:03] LABS: #Eosinphils 0.4 thou/uL (0.0-0.7); #Lymphocytes 0.7 thou/uL (1.20-3.40); #Monocytes 0.3 thou/uL (0.11-0.59); #Neutrophils 9.5 thou/uL (1.40-6.50); %Eosinophils 3.4 % (0.0-10.0); %Lymphocytes 6.5 % (21.0-51.0); %Monocytes 2.8 % (0.0-10.0); %Neutrophils 87.3 % (42.0-75.0); Mean Corpuscular HGB CONC 34.5 g/dL (32.0-36.0); Mean Corpuscular Hemoglobin 33.7 pg (27.0-31.0); Mean Corpuscular Volume 97.6 fL (78.0-98.0); Mean Platelet Volume 10.4 fL (7.4-10.4); Platelet Count 83 thou/uL (130-400); RBC Distribution Width 13.4 % (11.5-14.5); Red Blood Cell (RBC) Count 4.46 mill/uL (4.70-6.10); White Blood Cell (WBC) Count 10.9 thou/uL (4.8-10.8)
[2021-03-06 04:13] LABS: Anion Gap 10 mmol/L (10-20); BUN (Urea Nitrogen) 22 mg/dL (8.4-25.7); Calc. Creatinine Clearance 137 mL/min (70-130); Calcium 7.8 mg/dL (7.8-10.44); Carbon Dioxide 23 mmol/L (23-31); Chloride 108 mmol/L (98-107); Glucose 115 mg/dL (80-115); Potassium 3.7 mmol/L (3.5-5.1); Sodium 137 mmol/L (136-145)
[2021-03-06] MEDS: Zinc Sulfate 220 MG CAP PO SCH (08:40)
[2021-03-06] MEDS: Senokot S 8.6-50 MG TAB PO SCH ×2 (08:40→19:25)
[2021-03-06] MEDS: Dexamethasone 4 mg/ml Vial SLOW IVP SCH (08:40)
[2021-03-06] MEDS: Enoxaparin Sodium 40 MG/0.4 ML SYRINGE SC SCH ×2 (08:40→19:25)
[2021-03-06] MEDS: Cyanocobalamin (Vitamin B-12) 1,000 MCG TAB PO SCH (08:40)
[2021-03-06] MEDS: Cholecalciferol 1,000 UNITS (25 MCG) TAB PO SCH (08:40)
[2021-03-06] MEDS: Ascorbic Acid 500 mg Chewable Tablet PO SCH (08:40)
[2021-03-06] MEDS: Folic Acid 1 MG TAB PO SCH (08:40)
[2021-03-06] MEDS: Polyvinyl Alcohol 1.4%/Povidone 0.6% Opth Drops EA EYE SCH ×2 (08:41→20:30)
[2021-03-06] MEDS: Multivit, Therapeutic 1 TAB PO SCH (08:41)
[2021-03-06] MEDS: Mirtazapine 15 MG TAB PO SCH (19:25)
[2021-03-06] MEDS: Lantus 1000 UNITS/10 ML VIAL SC SCH ×2 (20:30→20:39)
[2021-03-07 08:18] LABS: #Eosinphils 0.5 thou/uL (0.0-0.7); #Lymphocytes 1.3 thou/uL (1.20-3.40); #Monocytes 0.3 thou/uL (0.11-0.59); #Neutrophils 9.6 thou/uL (1.40-6.50); %Eosinophils 4.2 % (0.0-10.0); %Lymphocytes 11.1 % (21.0-51.0); %Monocytes 2.9 % (0.0-10.0); %Neutrophils 81.8 % (42.0-75.0); Hemoglobin 15.7 g/dL (14.0-18.0); Mean Corpuscular HGB CONC 32.3 g/dL (32.0-36.0); Mean Corpuscular Hemoglobin 31.8 pg (27.0-31.0); Mean Corpuscular Volume 98.4 fL (78.0-98.0); Mean Platelet Volume 9.6 fL (7.4-10.4); Platelet Count 120 thou/uL (130-400); RBC Distribution Width 13.5 % (11.5-14.5); Red Blood Cell (RBC) Count 4.95 mill/uL (4.70-6.10); White Blood Cell (WBC) Count 11.7 thou/uL (4.8-10.8)
[2021-03-07 08:41] LABS: ALT (SGPT) 86 U/L (8-55); AST (SGOT) 36 U/L (5-34); Albumin 2.6 g/dL (3.4-4.8); Alkaline Phosphatase 163 U/L (40-110); Anion Gap 11 mmol/L (10-20); BUN (Urea Nitrogen) 19 mg/dL (8.4-25.7); Bilirubin, Total 0.9 mg/dL (0.2-1.2); Calc. Creatinine Clearance 121 mL/min (70-130); Calcium 8.2 mg/dL (7.8-10.44); Carbon Dioxide 26 mmol/L (23-31); Chloride 106 mmol/L (98-107); Globulin 2.9 g/dL (2.4-3.5); Glucose 84 mg/dL (80-115); Potassium 3.8 mmol/L (3.5-5.1); Protein, Total 5.5 g/dL (5.8-8.1); Sodium 139 mmol/L (136-145)
[2021-03-07] MEDS: Dexamethasone 4 mg/ml Vial SLOW IVP SCH (09:20)
[2021-03-07] MEDS: Cyanocobalamin (Vitamin B-12) 1,000 MCG TAB PO SCH (09:20)
[2021-03-07] MEDS: Folic Acid 1 MG TAB PO SCH (09:21)
[2021-03-07] MEDS: Enoxaparin Sodium 40 MG/0.4 ML SYRINGE SC SCH ×2 (09:21→20:11)
[2021-03-07] MEDS: Polyethylene Glycol 3350 17 GM Packet PO SCH (09:21)
[2021-03-07] MEDS: Polyvinyl Alcohol 1.4%/Povidone 0.6% Opth Drops EA EYE SCH ×2 (09:21→20:12)
[2021-03-07] MEDS: Zinc Sulfate 220 MG CAP PO SCH (09:21)
[2021-03-07] MEDS: Cholecalciferol 1,000 UNITS (25 MCG) TAB PO SCH (09:21)
[2021-03-07] MEDS: Senokot S 8.6-50 MG TAB PO SCH ×2 (09:21→20:12)
[2021-03-07] MEDS: Multivit, Therapeutic 1 TAB PO SCH (09:21)
[2021-03-07] MEDS: Ascorbic Acid 500 mg Chewable Tablet PO SCH (09:21)
[2021-03-07] MEDS: Lantus 1000 UNITS/10 ML VIAL SC SCH (20:11)
[2021-03-07] MEDS: Mirtazapine 15 MG TAB PO SCH (20:11)
[2021-03-08] MEDS: Benzonatate 100 MG CAP PO PRN ×2 (03:14→20:54)
[2021-03-08] MEDS: Zinc Sulfate 220 MG CAP PO SCH (08:30)
[2021-03-08] MEDS: Senokot S 8.6-50 MG TAB PO SCH ×2 (08:30→21:35)
[2021-03-08] MEDS: Cyanocobalamin (Vitamin B-12) 1,000 MCG TAB PO SCH (08:30)
[2021-03-08] MEDS: Cholecalciferol 1,000 UNITS (25 MCG) TAB PO SCH (08:30)
[2021-03-08] MEDS: Multivit, Therapeutic 1 TAB PO SCH (08:30)
[2021-03-08] MEDS: Folic Acid 1 MG TAB PO SCH (08:30)
[2021-03-08] MEDS: Ascorbic Acid 500 mg Chewable Tablet PO SCH (08:30)
[2021-03-08] MEDS: Enoxaparin Sodium 40 MG/0.4 ML SYRINGE SC SCH ×2 (08:31→20:55)
[2021-03-08] MEDS: Polyvinyl Alcohol 1.4%/Povidone 0.6% Opth Drops EA EYE SCH ×2 (08:31→20:55)
[2021-03-08] MEDS: Dexamethasone 4 mg/ml Vial SLOW IVP SCH (08:31)
[2021-03-08] MEDS: Polyethylene Glycol 3350 17 GM Packet PO SCH (08:31)
[2021-03-08] MEDS: HumaLOG 300 UNITS/3 ML VIAL SC PRN (17:35)
[2021-03-08] MEDS: Mirtazapine 15 MG TAB PO SCH (20:54)
[2021-03-08] MEDS: Lantus 1000 UNITS/10 ML VIAL SC SCH (21:35)
[2021-03-09] MEDS: Ascorbic Acid 500 mg Chewable Tablet PO SCH (08:40)
[2021-03-09] MEDS: Polyethylene Glycol 3350 17 GM Packet PO SCH (08:40)
[2021-03-09] MEDS: Folic Acid 1 MG TAB PO SCH (08:40)
[2021-03-09] MEDS: Zinc Sulfate 220 MG CAP PO SCH (08:40)
[2021-03-09] MEDS: Multivit, Therapeutic 1 TAB PO SCH (08:41)
[2021-03-09] MEDS: Enoxaparin Sodium 40 MG/0.4 ML SYRINGE SC SCH ×2 (08:41→20:59)
[2021-03-09] MEDS: Senokot S 8.6-50 MG TAB PO SCH ×2 (08:41→22:32)
[2021-03-09] MEDS: Cyanocobalamin (Vitamin B-12) 1,000 MCG TAB PO SCH (08:41)
[2021-03-09] MEDS: Polyvinyl Alcohol 1.4%/Povidone 0.6% Opth Drops EA EYE SCH ×2 (08:41→20:59)
[2021-03-09] MEDS: Cholecalciferol 1,000 UNITS (25 MCG) TAB PO SCH (08:41)
[2021-03-09] MEDS: Dexamethasone 4 mg/ml Vial SLOW IVP SCH (08:42)
[2021-03-09 10:17] LABS: #Eosinphils 0.3 thou/uL (0.0-0.7); #Lymphocytes 1.2 thou/uL (1.20-3.40); #Monocytes 0.4 thou/uL (0.11-0.59); #Neutrophils 9.1 thou/uL (1.40-6.50); %Basophils 0.2 % (0.0-1.0); %Eosinophils 2.9 % (0.0-10.0); %Lymphocytes 11.3 % (21.0-51.0); %Monocytes 3.5 % (0.0-10.0); %Neutrophils 82.1 % (42.0-75.0); Hemoglobin 16.5 g/dL (14.0-18.0); Mean Corpuscular HGB CONC 32.7 g/dL (32.0-36.0); Mean Corpuscular Hemoglobin 32.2 pg (27.0-31.0); Mean Corpuscular Volume 98.7 fL (78.0-98.0); Mean Platelet Volume 9.5 fL (7.4-10.4); Platelet Count 158 thou/uL (130-400); RBC Distribution Width 13.5 % (11.5-14.5); Red Blood Cell (RBC) Count 5.12 mill/uL (4.70-6.10)
[2021-03-09 10:40] LABS: Anion Gap 12 mmol/L (10-20); BUN (Urea Nitrogen) 18 mg/dL (8.4-25.7); Calc. Creatinine Clearance 106 mL/min (70-130); Calcium 8.6 mg/dL (7.8-10.44); Carbon Dioxide 28 mmol/L (23-31); Chloride 102 mmol/L (98-107); Glucose 158 mg/dL (80-115); Potassium 3.7 mmol/L (3.5-5.1); Sodium 138 mmol/L (136-145)
[2021-03-09] MEDS: HumaLOG 300 UNITS/3 ML VIAL SC PRN (16:28)
[2021-03-09] MEDS: Mirtazapine 15 MG TAB PO SCH (20:58)
[2021-03-09] MEDS: Lantus 1000 UNITS/10 ML VIAL SC SCH (20:59)
[2021-03-10] MEDS: Senokot S 8.6-50 MG TAB PO SCH ×2 (10:00→20:32)
[2021-03-10] MEDS: Folic Acid 1 MG TAB PO SCH (10:01)
[2021-03-10] MEDS: Zinc Sulfate 220 MG CAP PO SCH (10:01)
[2021-03-10] MEDS: Cholecalciferol 1,000 UNITS (25 MCG) TAB PO SCH (10:01)
[2021-03-10] MEDS: Ascorbic Acid 500 mg Chewable Tablet PO SCH (10:01)
[2021-03-10] MEDS: Cyanocobalamin (Vitamin B-12) 1,000 MCG TAB PO SCH (10:01)
[2021-03-10] MEDS: Multivit, Therapeutic 1 TAB PO SCH (10:01)
[2021-03-10] MEDS: Dexamethasone 4 mg/ml Vial SLOW IVP SCH (10:02)
[2021-03-10] MEDS: Enoxaparin Sodium 40 MG/0.4 ML SYRINGE SC SCH ×2 (10:02→20:32)
[2021-03-10] MEDS: Polyethylene Glycol 3350 17 GM Packet PO SCH (10:04)
[2021-03-10] MEDS ORDERED: Sodium Chloride 0.9% 1,000 ML IV SCH (13:45)
[2021-03-10 14:22] LABS: #Eosinphils 0.1 thou/uL (0.0-0.7); #Lymphocytes 0.5 thou/uL (1.20-3.40); #Monocytes 0.1 thou/uL (0.11-0.59); #Neutrophils 8.3 thou/uL (1.40-6.50); %Basophils 0.2 % (0.0-1.0); %Eosinophils 1.2 % (0.0-10.0); %Lymphocytes 5.8 % (21.0-51.0); %Monocytes 1.6 % (0.0-10.0); %Neutrophils 91.2 % (42.0-75.0); Hemoglobin 15.9 g/dL (14.0-18.0); Mean Corpuscular HGB CONC 32.6 g/dL (32.0-36.0); Mean Corpuscular Hemoglobin 32.4 pg (27.0-31.0); Mean Corpuscular Volume 99.2 fL (78.0-98.0); Mean Platelet Volume 9.9 fL (7.4-10.4); Platelet Count 141 thou/uL (130-400); RBC Distribution Width 13.8 % (11.5-14.5); Red Blood Cell (RBC) Count 4.91 mill/uL (4.70-6.10); White Blood Cell (WBC) Count 9.1 thou/uL (4.8-10.8)
[2021-03-10 14:41] LABS: Anion Gap 12 mmol/L (10-20); BUN (Urea Nitrogen) 20 mg/dL (8.4-25.7); CRP (Inflammatory) 0.92 mg/dL (= or < 0.5); Calc. Creatinine Clearance 95 mL/min (70-130); Calcium 8.3 mg/dL (7.8-10.44); Carbon Dioxide 26 mmol/L (23-31); Chloride 101 mmol/L (98-107); Glucose 341 mg/dL (80-115); Potassium 4.4 mmol/L (3.5-5.1); Sodium 135 mmol/L (136-145)
[2021-03-10] MEDS: Polyvinyl Alcohol 1.4%/Povidone 0.6% Opth Drops EA EYE SCH ×2 (14:55→20:32)
[2021-03-10] MEDS: HumaLOG 300 UNITS/3 ML VIAL SC PRN (18:13)
[2021-03-10] MEDS: Lantus 1000 UNITS/10 ML VIAL SC SCH (20:33)
[2021-03-11] MEDS: Ascorbic Acid 500 mg Chewable Tablet PO SCH (08:36)
[2021-03-11] MEDS: Cyanocobalamin (Vitamin B-12) 1,000 MCG TAB PO SCH (08:36)
[2021-03-11] MEDS: Enoxaparin Sodium 40 MG/0.4 ML SYRINGE SC SCH ×2 (08:36→20:06)
[2021-03-11] MEDS: Cholecalciferol 1,000 UNITS (25 MCG) TAB PO SCH (08:36)
[2021-03-11] MEDS: Zinc Sulfate 220 MG CAP PO SCH (08:36)
[2021-03-11] MEDS: Folic Acid 1 MG TAB PO SCH (08:37)
[2021-03-11] MEDS: Polyethylene Glycol 3350 17 GM Packet PO SCH (08:37)
[2021-03-11] MEDS: Senokot S 8.6-50 MG TAB PO SCH ×2 (08:37→20:09)
[2021-03-11] MEDS: Dexamethasone 4 mg/ml Vial SLOW IVP SCH (08:37)
[2021-03-11] MEDS: Multivit, Therapeutic 1 TAB PO SCH (08:37)
[2021-03-11] MEDS: GUAIFENESIN SF SOLN 200 MG/10 ML UDCUP PO PRN ×2 (08:42→20:06)
[2021-03-11] MEDS ORDERED: guaiFENesin/Codeine 200 mg/20 mg 10 ml Cup PO SCH (10:30)
[2021-03-11] MEDS: Polyvinyl Alcohol 1.4%/Povidone 0.6% Opth Drops EA EYE SCH ×2 (11:29→20:11)
[2021-03-11] MEDS: HumaLOG 300 UNITS/3 ML VIAL SC PRN ×2 (11:30→16:18)
[2021-03-11] MEDS: Lantus 1000 UNITS/10 ML VIAL SC SCH (20:12)
[2021-03-12] MEDS: GUAIFENESIN SF SOLN 200 MG/10 ML UDCUP PO PRN ×2 (04:54→12:03)
[2021-03-12] MEDS: Cyanocobalamin (Vitamin B-12) 1,000 MCG TAB PO SCH (08:30)
[2021-03-12] MEDS: Ascorbic Acid 500 mg Chewable Tablet PO SCH (08:30)
[2021-03-12] MEDS: Senokot S 8.6-50 MG TAB PO SCH ×2 (08:30→20:26)
[2021-03-12] MEDS: Folic Acid 1 MG TAB PO SCH (08:30)
[2021-03-12] MEDS: Cholecalciferol 1,000 UNITS (25 MCG) TAB PO SCH (08:30)
[2021-03-12] MEDS: Zinc Sulfate 220 MG CAP PO SCH (08:30)
[2021-03-12] MEDS: Enoxaparin Sodium 40 MG/0.4 ML SYRINGE SC SCH ×2 (08:30→20:26)
[2021-03-12] MEDS: Multivit, Therapeutic 1 TAB PO SCH (08:30)
[2021-03-12] MEDS: predniSONE 20 MG TAB PO SCH (08:30)
[2021-03-12] MEDS: Polyethylene Glycol 3350 17 GM Packet PO SCH (08:31)
[2021-03-12] MEDS: Polyvinyl Alcohol 1.4%/Povidone 0.6% Opth Drops EA EYE SCH ×2 (08:37→20:27)
[2021-03-12] MEDS: HumaLOG 300 UNITS/3 ML VIAL SC PRN ×2 (12:03→16:08)
[2021-03-12] MEDS: Lantus 1000 UNITS/10 ML VIAL SC SCH (20:27)
[2021-03-13 08:07] LABS: #Eosinphils 0.1 thou/uL (0.0-0.7); #Lymphocytes 1.1 thou/uL (1.20-3.40); #Monocytes 0.2 thou/uL (0.11-0.59); #Neutrophils 4.3 thou/uL (1.40-6.50); %Basophils 0.5 % (0.0-1.0); %Eosinophils 2.4 % (0.0-10.0); %Monocytes 2.8 % (0.0-10.0); %Neutrophils 74.3 % (42.0-75.0); Hemoglobin 15.2 g/dL (14.0-18.0); Mean Corpuscular HGB CONC 32.9 g/dL (32.0-36.0); Mean Corpuscular Hemoglobin 32.4 pg (27.0-31.0); Mean Corpuscular Volume 98.6 fL (78.0-98.0); Mean Platelet Volume 9.2 fL (7.4-10.4); Platelet Count 94 thou/uL (130-400); Platelet Morphology Comment Appears Decreased; White Blood Cell (WBC) Count 5.7 thou/uL (4.8-10.8)
[2021-03-13] MEDS: Multivit, Therapeutic 1 TAB PO SCH (08:07)
[2021-03-13] MEDS: Ascorbic Acid 500 mg Chewable Tablet PO SCH (08:07)
[2021-03-13] MEDS: Folic Acid 1 MG TAB PO SCH (08:07)
[2021-03-13] MEDS: Zinc Sulfate 220 MG CAP PO SCH (08:07)
[2021-03-13] MEDS: Polyethylene Glycol 3350 17 GM Packet PO SCH (08:07)
[2021-03-13] MEDS: Cholecalciferol 1,000 UNITS (25 MCG) TAB PO SCH (08:07)
[2021-03-13] MEDS: Polyvinyl Alcohol 1.4%/Povidone 0.6% Opth Drops EA EYE SCH ×2 (08:07→21:13)
[2021-03-13] MEDS: predniSONE 20 MG TAB PO SCH (08:08)
[2021-03-13] MEDS: Enoxaparin Sodium 40 MG/0.4 ML SYRINGE SC SCH ×2 (08:08→21:13)
[2021-03-13] MEDS: Senokot S 8.6-50 MG TAB PO SCH ×2 (08:08→21:13)
[2021-03-13] MEDS: Cyanocobalamin (Vitamin B-12) 1,000 MCG TAB PO SCH (08:08)
[2021-03-13 08:09] LABS: MDiff Complete? YES
[2021-03-13 08:10] LABS: Anion Gap 10 mmol/L (10-20); BUN (Urea Nitrogen) 16 mg/dL (8.4-25.7); Calc. Creatinine Clearance 121 mL/min (70-130); Calcium 8.1 mg/dL (7.8-10.44); Carbon Dioxide 32 mmol/L (23-31); Chloride 103 mmol/L (98-107); Glucose 99 mg/dL (80-115); Potassium 3.7 mmol/L (3.5-5.1); Sodium 141 mmol/L (136-145)
[2021-03-13] MEDS: HumaLOG 300 UNITS/3 ML VIAL SC PRN (16:44)
[2021-03-13] MEDS: Lantus 1000 UNITS/10 ML VIAL SC SCH (21:13)
[2021-03-14] MEDS: Ascorbic Acid 500 mg Chewable Tablet PO SCH (08:36)
[2021-03-14] MEDS: Senokot S 8.6-50 MG TAB PO SCH ×2 (08:37→20:12)
[2021-03-14] MEDS: Cyanocobalamin (Vitamin B-12) 1,000 MCG TAB PO SCH (08:37)
[2021-03-14] MEDS: Multivit, Therapeutic 1 TAB PO SCH (08:37)
[2021-03-14] MEDS: Cholecalciferol 1,000 UNITS (25 MCG) TAB PO SCH (08:37)
[2021-03-14] MEDS: Folic Acid 1 MG TAB PO SCH (08:37)
[2021-03-14] MEDS: Zinc Sulfate 220 MG CAP PO SCH (08:37)
[2021-03-14] MEDS: predniSONE 20 MG TAB PO SCH (08:37)
[2021-03-14] MEDS: Enoxaparin Sodium 40 MG/0.4 ML SYRINGE SC SCH ×2 (08:38→20:38)
[2021-03-14] MEDS: Polyethylene Glycol 3350 17 GM Packet PO SCH (08:39)
[2021-03-14] MEDS: Polyvinyl Alcohol 1.4%/Povidone 0.6% Opth Drops EA EYE SCH ×2 (08:39→20:30)
[2021-03-14] MEDS: HumaLOG 300 UNITS/3 ML VIAL SC PRN ×2 (11:33→16:38)
[2021-03-14] MEDS: Lantus 1000 UNITS/10 ML VIAL SC SCH (20:30)
[2021-03-15 08:27] LABS: #Basophils 0.1 thou/uL (0.0-0.2); #Eosinphils 0.1 thou/uL (0.0-0.7); #Lymphocytes 0.9 thou/uL (1.20-3.40); #Monocytes 0.2 thou/uL (0.11-0.59); #Neutrophils 3.6 thou/uL (1.40-6.50); %Basophils 1.4 % (0.0-1.0); %Eosinophils 2.4 % (0.0-10.0); %Lymphocytes 17.9 % (21.0-51.0); %Monocytes 4.7 % (0.0-10.0); %Neutrophils 73.6 % (42.0-75.0); Hemoglobin 13.6 g/dL (14.0-18.0); Mean Corpuscular HGB CONC 33.2 g/dL (32.0-36.0); Mean Corpuscular Hemoglobin 32.6 pg (27.0-31.0); Mean Corpuscular Volume 98.2 fL (78.0-98.0); Mean Platelet Volume 9.6 fL (7.4-10.4); Platelet Count 86 thou/uL (130-400); RBC Distribution Width 13.8 % (11.5-14.5); Red Blood Cell (RBC) Count 4.17 mill/uL (4.70-6.10); White Blood Cell (WBC) Count 4.9 thou/uL (4.8-10.8)
[2021-03-15 08:43] LABS: Anion Gap 11 mmol/L (10-20); BUN (Urea Nitrogen) 14 mg/dL (8.4-25.7); Calc. Creatinine Clearance 134 mL/min (70-130); Calcium 7.7 mg/dL (7.8-10.44); Carbon Dioxide 27 mmol/L (23-31); Chloride 105 mmol/L (98-107); Glucose 85 mg/dL (80-115); Potassium 3.5 mmol/L (3.5-5.1); Sodium 139 mmol/L (136-145)
[2021-03-15] MEDS: predniSONE 20 MG TAB PO SCH (08:50)
[2021-03-15] MEDS: Folic Acid 1 MG TAB PO SCH (08:50)
[2021-03-15] MEDS: Ascorbic Acid 500 mg Chewable Tablet PO SCH (08:50)
[2021-03-15] MEDS: Zinc Sulfate 220 MG CAP PO SCH (08:50)
[2021-03-15] MEDS: Multivit, Therapeutic 1 TAB PO SCH (08:50)
[2021-03-15] MEDS: Cholecalciferol 1,000 UNITS (25 MCG) TAB PO SCH (08:50)
[2021-03-15] MEDS: Cyanocobalamin (Vitamin B-12) 1,000 MCG TAB PO SCH (08:51)
[2021-03-15] MEDS: Polyethylene Glycol 3350 17 GM Packet PO SCH (08:51)
[2021-03-15] MEDS: Senokot S 8.6-50 MG TAB PO SCH ×2 (08:51→20:18)
[2021-03-15] MEDS: Polyvinyl Alcohol 1.4%/Povidone 0.6% Opth Drops EA EYE SCH ×2 (08:54→20:24)
[2021-03-15] MEDS: Enoxaparin Sodium 40 MG/0.4 ML SYRINGE SC SCH ×2 (09:54→20:18)
[2021-03-15] MEDS: HumaLOG 300 UNITS/3 ML VIAL SC PRN (18:25)
[2021-03-15] MEDS: Lantus 1000 UNITS/10 ML VIAL SC SCH (20:19)
[2021-03-16] MEDS: Multivit, Therapeutic 1 TAB PO SCH (08:38)
[2021-03-16] MEDS: Cyanocobalamin (Vitamin B-12) 1,000 MCG TAB PO SCH (08:38)
[2021-03-16] MEDS: Cholecalciferol 1,000 UNITS (25 MCG) TAB PO SCH (08:38)
[2021-03-16] MEDS: Ascorbic Acid 500 mg Chewable Tablet PO SCH (08:38)
[2021-03-16] MEDS: Senokot S 8.6-50 MG TAB PO SCH ×2 (08:38→20:52)
[2021-03-16] MEDS: predniSONE 20 MG TAB PO SCH (08:38)
[2021-03-16] MEDS: Enoxaparin Sodium 40 MG/0.4 ML SYRINGE SC SCH ×2 (08:38→20:54)
[2021-03-16] MEDS: Folic Acid 1 MG TAB PO SCH (08:39)
[2021-03-16] MEDS: Polyethylene Glycol 3350 17 GM Packet PO SCH (08:39)
[2021-03-16] MEDS: Zinc Sulfate 220 MG CAP PO SCH (08:39)
[2021-03-16] MEDS: Polyvinyl Alcohol 1.4%/Povidone 0.6% Opth Drops EA EYE SCH ×2 (08:40→20:55)
[2021-03-16 10:10] VITALS: BMI 26.8
[2021-03-16] MEDS: HumaLOG 300 UNITS/3 ML VIAL SC PRN (17:06)
[2021-03-16] MEDS: Lantus 1000 UNITS/10 ML VIAL SC SCH (20:54)
[2021-03-17 08:10] VITALS: BP 104/70; TEMP 98.3
[2021-03-17] MEDS: Senokot S 8.6-50 MG TAB PO SCH (09:18)
[2021-03-17] MEDS: Ascorbic Acid 500 mg Chewable Tablet PO SCH (09:18)
[2021-03-17] MEDS: predniSONE 20 MG TAB PO SCH (09:19)
[2021-03-17] MEDS: Cyanocobalamin (Vitamin B-12) 1,000 MCG TAB PO SCH (09:19)
[2021-03-17] MEDS: Folic Acid 1 MG TAB PO SCH (09:19)
[2021-03-17] MEDS: Cholecalciferol 1,000 UNITS (25 MCG) TAB PO SCH (09:19)
[2021-03-17] MEDS: Enoxaparin Sodium 40 MG/0.4 ML SYRINGE SC SCH (09:19)
[2021-03-17] MEDS: Zinc Sulfate 220 MG CAP PO SCH (09:20)
[2021-03-17] MEDS: Multivit, Therapeutic 1 TAB PO SCH (09:20)
[2021-03-17] MEDS: Polyethylene Glycol 3350 17 GM Packet PO SCH ×2 (09:20→09:22)
[2021-03-17] MEDS: Polyvinyl Alcohol 1.4%/Povidone 0.6% Opth Drops EA EYE SCH (09:20)
[2021-03-17] MEDS: HumaLOG 300 UNITS/3 ML VIAL SC PRN (13:12)
== END 2021-03-17 16:22 | disposition home or self-care (01) | DRG 871 ==
LOC: ERS 18:47 → T4-A 21:27 → OBSVTOIN 02-12 04:11 → IMCU/EMU 02-17 16:24 → 2NO 03-07 18:56 → T4-A 03-11 00:08
PROVIDERS: ADMIT Internal Medicine; ATTEND Internal Medicine
PROC: 3E0333Z Introduction of Anti-inflammatory into Peripheral Vein, Percutaneous Approach (ICD-10-PCS; 2021-02-11)
PROC: XW033E5 Introduction of Remdesivir Anti-infective into Peripheral Vein, Percutaneous Approach, New Technology Group 5 (ICD-10-PCS; principal; 2021-02-12)
PROC: 8E0ZXY6 Isolation (ICD-10-PCS; 2021-02-12)
PROC: 5A09557 Assistance with Respiratory Ventilation, Greater than 96 Consecutive Hours, Continuous Positive Airway Pressure (ICD-10-PCS; 2021-02-17)
PROC: 3E0G76Z Introduction of Nutritional Substance into Upper GI, Via Natural or Artificial Opening (ICD-10-PCS; 2021-02-17)
PROC: XW0DXM6 Introduction of Baricitinib into Mouth and Pharynx, External Approach, New Technology Group 6 (ICD-10-PCS; 2021-02-18)
PROC: 5A0955A Assistance with Respiratory Ventilation, Greater than 96 Consecutive Hours, High Flow/Velocity Cannula (ICD-10-PCS; 2021-02-27)
DX: A41.89 Other specified sepsis (principal); U07.1 COVID-19; J12.82 Pneumonia due to coronavirus disease 2019; J96.01 Acute respiratory failure with hypoxia; E87.1 Hypo-osmolality and hyponatremia; R65.20 Severe sepsis without septic shock; J98.2 Interstitial emphysema; R94.5 Abnormal results of liver function studies; K74.60 Unspecified cirrhosis of liver; E11.9 Type 2 diabetes mellitus without complications; I10 Essential (primary) hypertension; Z28.21 Immunization not carried out because of patient refusal; Z83.3 Family history of diabetes mellitus; Z79.84 Long term (current) use of oral hypoglycemic drugs
CPT/HCPCS: 0240U; 36415; 36416; 36600; 71045; 71275; 76705; 80048; 80053; 80076; 81003; 81015; 82728; 82805; 83605; 83735; 83880; 84100; 84484; 85025; 85379; 86140; 87040; 87070; 87086; 87205; 93005; 93010; 94640; 94660; 96374; G0378; J1100; J1650; J1815; J2405; J7030; J7050; J7512; J7620; Q9967

== ENCOUNTER 2025-03-11 14:03 | Outpatient (CLI) | payer OTHER | END 2025-03-11 14:04 | disposition home or self-care (01) | LOC: MRI 14:03 | PROVIDERS: ATTEND Radiology Radiation Oncology | DX: C34.90 Malignant neoplasm of unspecified part of unspecified bronchus or lung (principal); C79.31 Secondary malignant neoplasm of brain | CPT/HCPCS: 70553; 76376 ==

== ENCOUNTER 2025-03-27 08:00 | Outpatient (CLI) | payer OTHER | END 2025-03-27 08:01 | disposition home or self-care (01) | LOC: PET 08:00 | PROVIDERS: ATTEND Internal Medicine Hematology & Oncology | DX: C34.11 Malignant neoplasm of upper lobe, right bronchus or lung (principal) | CPT/HCPCS: 78815; A9552 ==

== ENCOUNTER 2025-05-10 22:05 | Inpatient (IN) | payer OTHER ==
[~2025-05-10 22:05] MED LIST changes: -Iopamidol-370 76% 500 ML 1 ML ONE; +Iopamidol-370 76% 500 ML MDV (1 ML CHARGE) ONE
[2025-05-10 22:16] LABS: #Basophils Less than 0.03 10x3/uL (0.0-0.2); #Eosinophils 0.09 10x3/uL (0.0-0.7); #Monocytes 0.52 10x3/uL (0.11-0.59); #Neutrophils 3.04 10x3/uL (1.40-6.50); %Basophils 0.4 % (0.0-1.0); %Eosinophils 1.7 % (0.0-10.0); %Lymphocytes 31.3 % (21.0-51.0); %Monocytes 9.7 % (0.0-10.0); %Neutrophils 56.7 % (42.0-75.0); Hematocrit 42.7 % (42.0-52.0); Hemoglobin 13.8 g/dL (14.0-18.0); Mean Corpuscular Hemoglobin 30.5 pg (27.0-31.0); Mean Corpuscular Volume 94.3 fL (78.0-98.0); Platelet Count 162 10x3/uL (130-400); Red Blood Cell (RBC) Count 4.53 mill/uL (4.70-6.10); White Blood Cell (WBC) Count 5.36 10x3/uL (4.8-10.8)
[2025-05-10 22:29] LABS: INR-International Normal Ratio 1.4; PTT 33.7 sec (22.9-36.1); Prothrombin Time 17.2 sec (12.0-14.7)
[2025-05-10] MEDS ORDERED: levETIRAcetam 500 MG (5 mL) VIAL ONE (22:30)
[2025-05-10 22:33] LABS: ALT (SGPT) 17 U/L (Less than 45); AST (SGOT) 25 U/L (11-34); Albumin 3.6 g/dL (3.1-4.5); Alkaline Phosphatase 90 U/L (40-110); Anion Gap 17 mmol/L (10-20); BUN (Urea Nitrogen) 14 mg/dL (8.4-25.7); Bilirubin, Total 0.9 mg/dL (0.3-1.2); Calc. Creatinine Clearance 0 mL/min (70-130); Calcium 9.2 mg/dL (7.8-10.44); Carbon Dioxide 20 mmol/L (23-31); Chloride 109 mmol/L (98-107); Globulin 3.4 g/dL (2.4-3.5); Glucose 178 mg/dL (80-115); Potassium 4.0 mmol/L (3.5-5.1); Sodium 142 mmol/L (136-145)
[2025-05-10] MEDS ORDERED: Ondansetron PF 4 MG/2 ML Vial IVP PRN (23:39)
[2025-05-11 00:31] LABS: Magnesium 2.1 mg/dL (1.6-2.6)
[2025-05-11] MEDS ORDERED: Glucagon 1 MG/ML KIT IM PRN (00:36)
[2025-05-11] MEDS ORDERED: Dextrose 50% Abboject 50 ML SYRINGE SLOW IVP PRN (00:36)
[2025-05-11] MEDS ORDERED: Dexamethasone 10 MG/ML VIAL ONE (00:39)
[2025-05-11 01:52] VITALS: BMI 13.4
[2025-05-11 03:21] LABS: Cocaine Metabolite Screen Negative (Negative); THC/Cannabinoid Screen Negative (Negative); Tricyclic Screen Negative (Negative)
[2025-05-11 05:29] LABS: #Basophils Less than 0.03 10x3/uL (0.0-0.2); #Eosinophils Less than 0.03 10x3/uL (0.0-0.7); #Monocytes 0.09 10x3/uL (0.11-0.59); #Neutrophils 3.43 10x3/uL (1.40-6.50); %Basophils 0.0 % (0.0-1.0); %Eosinophils 0.0 % (0.0-10.0); %Lymphocytes 11.3 % (21.0-51.0); %Monocytes 2.3 % (0.0-10.0); %Neutrophils 86.1 % (42.0-75.0); Hematocrit 42.1 % (42.0-52.0); Hemoglobin 13.9 g/dL (14.0-18.0); Mean Corpuscular Hemoglobin 30.7 pg (27.0-31.0); Mean Corpuscular Volume 92.9 fL (78.0-98.0); Platelet Count 151 10x3/uL (130-400); Red Blood Cell (RBC) Count 4.53 mill/uL (4.70-6.10); White Blood Cell (WBC) Count 3.98 10x3/uL (4.8-10.8)
[2025-05-11 05:47] LABS: ALT (SGPT) 16 U/L (Less than 45); AST (SGOT) 22 U/L (11-34); Albumin 3.3 g/dL (3.1-4.5); Alkaline Phosphatase 82 U/L (40-110); Anion Gap 9 mmol/L (10-20); BUN (Urea Nitrogen) 12 mg/dL (8.4-25.7); Bilirubin, Total 0.8 mg/dL (0.3-1.2); Calc. Creatinine Clearance 131 mL/min (70-130); Calcium 9.1 mg/dL (7.8-10.44); Carbon Dioxide 21 mmol/L (23-31); Chloride 111 mmol/L (98-107); Globulin 3.3 g/dL (2.4-3.5); Glucose 161 mg/dL (80-115); Potassium 4.0 mmol/L (3.5-5.1); Sodium 137 mmol/L (136-145)
[2025-05-11] MEDS: Famotidine/PF 20 mg/2ml Vial SLOW IVP SCH (10:41)
[2025-05-11] MEDS: Enoxaparin 40 MG (0.4 mL) SYRINGE SC SCH (10:41)
[2025-05-11] MEDS: Famotidine 20 MG TAB PO SCH (10:42)
[2025-05-11] MEDS: levETIRAcetam 500 MG (5 mL) VIAL SLOW IVP SCH (11:11)
[2025-05-12] MEDS ORDERED: Iopamidol-370 76% 500 ML MDV (1 ML CHARGE) ONE (11:14)
[2025-05-13 03:58] LABS: Anion Gap 10 mmol/L (10-20); BUN (Urea Nitrogen) 12 mg/dL (8.4-25.7); Calc. Creatinine Clearance 133 mL/min (70-130); Calcium 8.8 mg/dL (7.8-10.44); Carbon Dioxide 22 mmol/L (23-31); Chloride 107 mmol/L (98-107); Glucose 103 mg/dL (80-115); Potassium 3.4 mmol/L (3.5-5.1); Sodium 136 mmol/L (136-145)
[2025-05-13 14:03] LABS: Potassium 3.9 mmol/L (3.5-5.1)
[2025-05-14 03:31] LABS: #Basophils Less than 0.03 10x3/uL (0.0-0.2); #Eosinophils Less than 0.03 10x3/uL (0.0-0.7); #Monocytes 0.17 10x3/uL (0.11-0.59); #Neutrophils 4.14 10x3/uL (1.40-6.50); %Basophils 0.0 % (0.0-1.0); %Eosinophils 0.0 % (0.0-10.0); %Lymphocytes 11.6 % (21.0-51.0); %Monocytes 3.5 % (0.0-10.0); %Neutrophils 84.5 % (42.0-75.0); Hematocrit 41.0 % (42.0-52.0); Hemoglobin 13.3 g/dL (14.0-18.0); Mean Corpuscular Hemoglobin 30.3 pg (27.0-31.0); Mean Corpuscular Volume 93.4 fL (78.0-98.0); Platelet Count 142 10x3/uL (130-400); Red Blood Cell (RBC) Count 4.39 mill/uL (4.70-6.10); White Blood Cell (WBC) Count 4.90 10x3/uL (4.8-10.8)
[2025-05-14 03:46] LABS: Anion Gap 14 mmol/L (10-20); BUN (Urea Nitrogen) 13 mg/dL (8.4-25.7); Calc. Creatinine Clearance 119 mL/min (70-130); Calcium 8.7 mg/dL (7.8-10.44); Carbon Dioxide 22 mmol/L (23-31); Chloride 106 mmol/L (98-107); Glucose 150 mg/dL (80-115); Magnesium 2.2 mg/dL (1.6-2.6); Potassium 3.7 mmol/L (3.5-5.1); Sodium 138 mmol/L (136-145)
[2025-05-15 15:49] VITALS: BP 115/77; TEMP 98.6
== END 2025-05-15 17:45 | disposition home or self-care (01) | DRG 100 ==
LOC: ERS 22:05 → PCU 23:39
PROVIDERS: ADMIT Internal Medicine; ATTEND Internal Medicine
PROC: XX20X89 Monitoring of Brain Electrical Activity, Computer-aided Detection and Notification, New Technology Group 9 (ICD-10-PCS; principal; 2025-05-11)
PROC: 4A10X4Z Monitoring of Central Nervous Electrical Activity, External Approach (ICD-10-PCS; 2025-05-11)
DX: R56.9 Unspecified convulsions (principal); G93.41 Metabolic encephalopathy; G93.6 Cerebral edema; C79.31 Secondary malignant neoplasm of brain; C79.51 Secondary malignant neoplasm of bone; I67.89 Other cerebrovascular disease; C34.2 Malignant neoplasm of middle lobe, bronchus or lung; E11.9 Type 2 diabetes mellitus without complications; I10 Essential (primary) hypertension; Z92.3 Personal history of irradiation; Z98.890 Other specified postprocedural states; Z87.891 Personal history of nicotine dependence; Z79.84 Long term (current) use of oral hypoglycemic drugs
CPT/HCPCS: 36415; 36416; 70450; 70496; 70498; 70553; 71260; 74177; 74230; 80048; 80053; 80306; 83605; 83735; 84146; 84443; 85025; 85610; 85730; 93005; 94760; 95700; 95711; 95819; 95957; 96365; 96375; J1100; J1308; J1650; J1815; J1953; J2060; J2919; Q9967

== ENCOUNTER 2025-06-13 13:46 | Outpatient (CLI) | payer OTHER | END 2025-06-13 13:47 | disposition home or self-care (01) | LOC: MRI 13:46 | PROVIDERS: ATTEND Radiology Radiation Oncology | DX: C34.90 Malignant neoplasm of unspecified part of unspecified bronchus or lung (principal); C79.31 Secondary malignant neoplasm of brain | CPT/HCPCS: 70553; 76376 ==